=== PATIENT | female | born 1965 | race Caucasian/White ===

== ENCOUNTER 2024-07-14 14:26 | Inpatient (IN) | payer OTHER, SELFPAY ==
--- NOTE | ~2024-07-14 | CT_ITS ---
CLINICAL HISTORY: abd pain CT abdomen and pelvis with contrast Comparison: None Findings: No consolidation at the lung bases. Unremarkable gallbladder and bladder. Subcentimeter low attenuating left renal lesions which are too small to characterize Uterine fibroid measuring 2.0 cm. The other solid organs are unremarkable. No bowel dilation. A normal appendix is identified. Colonic diverticulosis. Distal descending/proximal sigmoid colon inflamed diverticula with moderate pericolonic stranding and wall thickening. No fluid collection or free air No aneurysm. Mild calcified atherosclerotic disease. No lymphadenopathy. Trace ascites. No acute osseous abnormality. Impression: Acute uncomplicated diverticulitis. This document has been electronically signed by: Carolyn Lund MD on 07/14/2024 16:44:38
[2024-07-14 14:33] VITALS: BP 148/88; PULSE 85; O2SAT 98
[2024-07-14 14:38] VITALS: BP 130/68; PULSE 83; RESP 16; TEMP 37.1; O2SAT 93; BMI 30.3
--- NOTE | 2024-07-14 15:10 | ED_ITS ---
HPI - General Adult General Chief complaint: Abdominal Pain Stated complaint: SEVERE ABD PAIN,HX DIVERTICULITIS PER EMS Time Seen by Provider: 07/14/24 15:09 Source: patient and EMS Mode of arrival: EMS Limitations: no limitations History of Present Illness ED Provider: Hui Luong PA-C HPI narrative: Patient is a 58 year old assigned female at with a history of CPTSD, COPD, HTN, HLD, Bipolar disorder, asthma, and diverticulitis presenting to the emergency department today with abdominal pain. Patient states that she was recently admitted at [facility] for diverticulitis but did not like how she was being treated there and left against medical advice. Patient denies any dizziness, lightheadedness, nausea, vomiting, fever, chills, blurry vision, double vision, loss of vision, chest pain, difficulty breathing, shortness of breath, back pain, night sweats, pain with urination, increased urinary frequency, increased urinary urgency, blood in her urine or stool, syncope or a near syncopal episode, recent trauma or falls, bowel incontinence, bladder incontinence, or any other complaints at this time. Onset (ago): day(s) Relieving factors: none Exacerbating factors: none Associated symptoms: denies other symptoms Treatments prior to arrival: other ([facility] admission) Related Data Home Medications ?Medication ?Instructions ?Recorded ?Confirmed lorazepam 1 mg tablet 1 mg PO BEDTIME PRN Insomnia 06/05/21 omeprazole 20 mg tablet,delayed 20 mg PO DAILY 06/05/21 release acetaminophen 500 mg tablet 500 mg PO Q8H PRN Pain 07/14/24 albuterol sulfate 90 mcg/actuation 1 puff inhalation Q6H PRN wheezing 07/14/24 aerosol inhaler (Ventolin HFA) amlodipine 5 mg tablet 5 mg PO DAILY 07/14/24 cholecalciferol (vitamin D3) 50 50 mcg PO DAILY 07/14/24 mcg (2,000 unit) tablet (Vitamin D3) gabapentin 600 mg tablet 600 mg PO TID 07/14/24 quetiapine 100 mg tablet 100 mg PO BEDTIME 07/14/24 tizanidine 2 mg tablet 2 mg PO TID PRN Muscle Spasms 07/14/24 Allergies Allergy/AdvReac Type Severity Reaction Status Date / Time morphine Allergy Unknown Verified 07/14/24 14:42 Review of Systems 2 Constitutional: Constitutional: Reports no additional constitutional complaints, Denies chills, Denies fever(s) and Denies night sweats Eyes: Eyes: Reports no additional eye complaints, Denies blurry vision, Denies change in vision, Denies diplopia, Denies eye discharge, Denies loss of vision and Denies eye pain ENT: Denies dizziness Cardiovascular: Cardiovascular: Reports no additional cardiovascular complaints, Denies chest pain, Denies lightheadedness, Denies Loss of Consciousness and Denies dyspnea Respiratory: Respiratory: Reports no additional respiratory complaints and Denies dyspnea Gastrointestinal: Gastrointestinal: Reports no additional gastrointestinal complaints, Reports abdominal pain, Denies melena, Denies hematochezia, Denies change in bowel habits and Denies change in stool character Genitourinary: Genitourinary: Denies hematuria, Denies urinary frequency, Denies dysuria, Denies urinary incontinence, Denies urinary hesitancy and Denies urinary urgency Musculoskeletal: Musculoskeletal: Reports no additional musculoskeletal complaints, Denies numbness and Denies tingling Neurologic: Denies dizziness, Denies loss of vision, Denies numbness and Denies tingling Psychiatric: Psychiatric: Reports no additional psychiatric complaints Endocrine: Endocrine: Reports no additional endocrine complaints Hematologic/Lymphatic: Hematologic/Lymphatic: Reports no additional hematologic/lymphatic complaints Allergic/Immunologic: Allergic/Immunologic: Reports no additional allergic/immunologic complaints FOR[facility]LY [facility] Past Medical History Attestation statement: The following information was validated with the patient. Source: old records reviewed and nursing notes reviewed Medical History (Updated 07/14/24 @ 17:20 by KALEB Grijalva) Acute diverticulitis History of diverticulitis Bipolar depression PTSD (post-traumatic stress disorder) GERD (gastroesophageal reflux disease) Elevated cholesterol Urinary incontinence HTN (hypertension) COPD (chronic obstructive pulmonary disease) Asthma Surgical History Hx of eye surgery Hx of section Hx of colonoscopy Social History Social History Advance Directives: No Advance Directives Information Provided: No Do you have a plan to hurt others: No Plan Physical Exam ED Vital Signs: Vital Signs - 24 hr 07/14/24 14:38 Temperature 98.7 F Pulse Rate 83 Respiratory Rate 16 Blood Pressure 130/68 Pulse Oximetry 93 Oxygen Delivery Method Room Air BMI result Body Mass Index 30.3 Const General: cooperative, no acute distress, alert and awake Nutritional Appearance: well nourished Orientation/consciousness: patient oriented x3 Limitations: no limitations HENMT Head: Yes normal to inspection and Yes atraumatic Ears: hearing grossly normal bilaterally and external ears normal General nose exam: Normal external nose present, no nasal discharge noted and no epistaxis Face and sinus: Yes normal facial exam, No abrasion and No laceration Mouth: Normal oral and palatal mucosa present, no drooling and no muffled voice Eyes General: appearance normal, both eyes and all related structures Periorbital: periorbital findings normal Eyelids: Yes eyelids normal Conjunctivae: conjunctivae normal Pupils: Equal, round and reactive pupils present EOM: EOMs intact bilaterally Neck Neck: Yes normal visual inspection, Yes full ROM and Yes no lymphadenopathy Chest Chest palpation & inspection: normal inspection of the chest Resp Effort & Inspection: normal respiratory effort and able to speak in complete sentences GI Inspection: Yes normal to inspection Palpation (GI): not firm, Tenderness to palpation present (GI), no guarding and not rigid Neuro General: patient oriented x3 and moves all extremities Cranial nerves: Yes Equal, round and reactive pupils present Cognition (Neuro): normal cognition Extrem General: Yes normal to inspection, Yes full ROM and Yes capillary refill normal Psych Appearance: grossly normal Mental Status: mental status grossly normal Affect: normal affect Attitude: cooperative Thought process: Normal thought process present Thought content: Normal thought content present Insight: Good insight present (Psych) Medications Administered Discontinued Medications Generic Name Dose Route Start Last Admin Trade Name Freq PRN Reason Stop Dose Admin Ceftriaxone Sodium 1 gm 07/14/24 15:17 07/14/24 16:14 Ceftriaxone Sodium 1 Gm Vial IVPUSH 07/14/24 15:18 1 gm ONCE ONE Administration Metronidazole 500 mg in 100 mls @ 100 mls/hr 07/14/24 15:17 07/14/24 16:14 Flagyl IV 07/14/24 16:16 100 mls/hr ONCE ONE Administration Iohexol 85 ml 07/14/24 16:12 07/14/24 16:12 Iohexol 350 Mg/Ml 100 Ml Infus..Btl IV 07/14/24 16:13 85 ml ONCE ONE Administration Medical Decision Making Medical Decision Making MDM Narrative: Patient is a 58 year old assigned female at with a history of CPTSD, COPD, HTN, HLD, Bipolar disorder, asthma, and diverticulitis. Patient's physical exam was as noted in the physical exam portion of this note. Patient's blood work showed an elevated WBC count of 18.2. Patient's CT abd/pelvis showed acute diverticulitis. I spoke to the general surgeon property assessment monitor, Dr. Thorpe, who recommended medical admission and he would consult. I spoke to the hospitalist team who agreed to admission. Patient's clinical presentation is not consistent with sepsis (@1645). I explained my physical exam findings as well as all test results to the patient. I answered all questions asked by the patient. Patient verbalized agreement and understanding with this treatment plan and admission. Differential Diagnosis Differential Diagnoses: The differential diagnosis associated with the presentation includes Abdominal pain Diverticulitis Admission/Observation Consideration of admission/observation: Escalation of care including admission/observation considered Patient admitted as noted in the MDM Rationale portion of this note. Consult Healthcare Provider Management of the patient was discussed with: Hospitalist (agreed to admission as noted in the MDM Rationale portion of this note.) and Commodities Manager (spoke to the general surgeon, Dr. Thorpe, as noted in the MDM Rationale portion of this note.) Lab Data [facility] Lab Attestation statement: I reviewed the patient's lab results. My interpretation of these results are in the MDM Rationale portion of this note. 07/14/24 15:10 07/14/24 15:10 Labs: Lab Results 07/14/24 07/14/24 Range/Units 15:10 15:37 WBC 18.2 H (4.8-10.8) X10*3/uL RBC 4.38 (4.20-5.50) X10*6/uL Hgb 13.5 (12.0-16.0) g/dl Hct 40.3 (37.0-47.0) % MCV 92.0 (80.0-98.0) fL MCH 30.8 (27.0-33.0) pg MCHC 33.5 (31.0-35.0) g/dl RDW 13.0 (11.0-16.0) % Plt Count 413 H (160-400) X10*3/uL MPV 8.9 L (9.4-12.3) fL Immature Gran % (Auto) 0.6 H (0.0-0.4) % Neut % (Auto) 77.0 H (45-73) % Lymph % (Auto) 12.8 L (20-40) % Gooding % (Auto) 8.0 (2-11) % Eos % (Auto) 1.3 (0-4) % Baso % (Auto) 0.3 (0-2) % Lymph # (Auto) 2.3 (1.2-4.9) X10*3/uL Gooding # (Auto) 1.5 H (0.1-1.2) X10*3/uL Eos # (Auto) 0.2 (0.0-0.4) X10*3/uL Baso # (Auto) 0.1 (0.0-0.2) X10*3/uL Abs Immat Gran (auto) 0.10 H (0.00-0.03) X10*3/uL Absolute Neuts (auto) 14.0 H (2.0-8.3) x10*3/uL Absolute Nucleated RBC 0.000 (0.0-0.012) X10*3/uL Nucleated RBC % (auto) 0.0 (0.0-0.2) /100WBC Sodium 142 (135-145) mmol/L Potassium 3.7 (3.3-5.1) mmol/L Chloride 110 H (96-108) mmol/L Carbon Dioxide 24 (22-29) mmol/L Anion Gap 12 (12-20) BUN 12 (9-16) mg/dL Creatinine 0.65 (0.5-1.4) mg/dL Estim Creat Clear Calc 94.2 Estimated GFR > 60 Random Glucose 116 H (60-115) mg/dL Lactic Acid 1.1 (0.5-2.0) mmol/L Calcium 8.9 (8.4-10.2) mg/dL Total Bilirubin 0.3 (0.0-1.0) mg/dL AST 19 (5-31) U/L ALT 18 (0-31) U/L Alkaline Phosphatase 60 (39-117) U/L Total Protein 6.9 (6.5-8.0) g/dL Albumin 3.7 (3.5-5.0) g/dL Independent Interpretation I performed an independent interpretation of an: CT Scan Interpretation: My interpretation is in agreement with the radiologist's impression of this imaging study. L Report Number: [id number]: Total DLP = 605.00 mGy-cm CLINICAL HISTORY: abd pain CT abdomen and pelvis with contrast Comparison: None Findings: No consolidation at the lung bases. Unremarkable gallbladder and bladder. Subcentimeter low attenuating left renal lesions which are too small to characterize Uterine fibroid measuring 2.0 cm. The other solid organs are unremarkable. No bowel dilation. A normal appendix is identified. Colonic diverticulosis. Distal descending/proximal sigmoid colon inflamed diverticula with moderate pericolonic stranding and wall thickening. No fluid collection or free air No aneurysm. Mild calcified atherosclerotic disease. No lymphadenopathy. Trace ascites. No acute osseous abnormality. Impression: Acute uncomplicated diverticulitis. This document has been electronically signed by: Carolyn Lund MD on 07/14/2024 16:44:38 Dictated By: Carolyn Horvath MD Signed By: Electronically signed by Carolyn Horvath MD 07/14/24 [id number] Radiology Impression Discussion of test interpretation with radiology: I have reviewed the radiologist's reading. Independent Historian Clinical information obtained from an independent historian. History obtained from or confirmed by: EMS (EMS provided additional history and confirmed the history provided by the patient.) Critical Care Time Critical Care Time Critical Care Time: Yes Total Critical Care Time: 32 Attestation: I spent 32 minutes of Critical Care Time with this patient. This does not include time spent on separately reported billable procedures. Discharge Plan Discharge Clinical Impression: Acute diverticulitis Patient Disposition: Admitted As Inpatient Prescriptions: No Action lorazepam 1 mg Tablet 1 mg PO BEDTIME PRN (Reason: Insomnia) omeprazole 20 mg Tablet,Delayed Release (Dr/Ec) 20 mg PO DAILY gabapentin 600 mg tablet 600 mg PO TID tizanidine 2 mg tablet 2 mg PO TID PRN (Reason: Muscle Spasms) amlodipine 5 mg tablet 5 mg PO DAILY quetiapine 100 mg tablet 100 mg PO BEDTIME acetaminophen 500 mg tablet 500 mg PO Q8H PRN (Reason: Pain) albuterol sulfate [Ventolin HFA] 90 mcg/actuation HFA aerosol inhaler 1 puff inhalation Q6H PRN (Reason: wheezing) cholecalciferol (vitamin D3) [Vitamin D3] 50 mcg (2,000 unit) tablet 50 mcg PO DAILY Print Language: Mongolian
[2024-07-14 15:14] LABS: MANUAL DIFF FLAG NO
[2024-07-14 15:15] LABS: Basophils Absolute Auto 0.1 X10*3/uL (0.0-0.2); Basophils Percent Auto 0.3 % (0-2); Eosinophils Absolute Auto 0.2 X10*3/uL (0.0-0.4); Eosinophils Percent Auto 1.3 % (0-4); Hematocrit 40.3 % (37.0-47.0); Hemoglobin 13.5 g/dl (12.0-16.0); Imm Gran Pct Auto 0.6 % (0.0-0.4); Lymphocytes Absolute Auto 2.3 X10*3/uL (1.2-4.9); Lymphocytes Percent Auto 12.8 % (20-40); Mean Corpuscular HGB Conc 33.5 g/dl (31.0-35.0); Mean Corpuscular Hemoglobin 30.8 pg (27.0-33.0); Mean Platelet Volume 8.9 fL (9.4-12.3); Monocytes Absolute Auto 1.5 X10*3/uL (0.1-1.2); Platelet Count 413 X10*3/uL (160-400); Red Blood Count 4.38 X10*6/uL (4.20-5.50); White Blood Count 18.2 X10*3/uL (4.8-10.8)
[2024-07-14 15:40] LABS: Alanine Aminotransferase 18 U/L (0-31); Albumin Level 3.7 g/dL (3.5-5.0); Anion Gap 12 (12-20); Aspartate Amino Transferase 19 U/L (5-31); Bilirubin Total 0.3 mg/dL (0.0-1.0); Blood Urea Nitrogen 12 mg/dL (9-16); Calcium 8.9 mg/dL (8.4-10.2); Carbon Dioxide 24 mmol/L (22-29); Chloride 110 mmol/L (96-108); Creatinine Clr Calc Pharmacy 94.2; Estimated Glomerular Filt Rate > 60; Glucose Random 116 mg/dL (60-115); Potassium 3.7 mmol/L (3.3-5.1); Sodium 142 mmol/L (135-145); Total Protein 6.9 g/dL (6.5-8.0)
[2024-07-14 15:55] LABS: Alkaline Phosphatase 60 U/L (39-117)
[2024-07-14 16:01] LABS: Lactic Acid 1.1 mmol/L (0.5-2.0)
[2024-07-14] MEDS: iohexoL 350 MG/ML 100 ML INFUS..BTL 85 ML IV (16:12)
[2024-07-14] MEDS: metroNIDAZOLE/NS 500 MG/100 ML PIGGYBACK 100 MG IV (16:14)
[2024-07-14] MEDS: cefTRIAXone sodium 1 GM VIAL IVPUSH (16:14)
--- NOTE | 2024-07-14 17:06 | P.CONGS_ITS ---
History of Present Illness Consult details Consult date: 07/14/24 Narrative: 58 year old female with multiple medical problems including COPD, PTSD, bipolar disorder and hypertension, who is here in the ER because of abdominal pain. She says she was in [facility] ER last 07/06/2024 for abdominal pain and was told she had acute diverticulitis. She says that she left against medical advice as she says she was frustrated with her care there. She says she stayed in the ER for a long period of time. Furthermore, she apparently had some agreements with the staff She said her pain never really went away. Because of the persistence, she eventually decided to come to the ER today She denies any vomiting . She does says she has had loose stools with multiple episodes today She says that she did have some fever prior to going to the ER in [facility] last week. She also says she has had multiple colonoscopies in the past. She says she is being followed by Dr. Barfield here. She says she probably has about 10 colonoscopies and upper GI endoscopies before for multiple GI issues. She says she has a history of polyps. She says that she did have some inflammation in other parts of her intestine in the past but this is the 1st time that she actually remembers having diverticulitis Review of Systems 2 Constitutional: Constitutional: Denies chills and Denies fever(s) Cardiovascular: Cardiovascular: Denies chest pain, Denies dyspnea and Denies dyspnea on exertion Respiratory: Respiratory: Denies cough, Denies dyspnea and Denies dyspnea on exertion Gastrointestinal: Gastrointestinal: Denies hematochezia, Denies change in bowel habits and Reports diarrhea Genitourinary: Genitourinary: Denies hematuria Musculoskeletal: Musculoskeletal: Denies back pain and Denies limited range of motion Neurologic: Denies focal weakness and Denies convulsions Psychiatric: Psychiatric: Denies depression and Denies mood swings PMFSH Past Medical History Medical History Acute diverticulitis History of diverticulitis Bipolar depression PTSD (post-traumatic stress disorder) GERD (gastroesophageal reflux disease) Elevated cholesterol Urinary incontinence HTN (hypertension) COPD (chronic obstructive pulmonary disease) Asthma Surgical History Surgical History Hx of eye surgery Hx of section Hx of colonoscopy Social History Social History Household Members: None Housing: Apartment Do you presently have visiting nurse or other home services: Yes Patient Tobacco Use Status: Never used Tobacco e-Cigarette/Vaping Use: Former Use Substance Use Type: Crack/Cocaine service: No Meds Allergies Allergy/AdvReac Type Severity Reaction Status Date / Time morphine Allergy Unknown Verified 07/14/24 14:42 Home Medications ?Medication ?Instructions ?Recorded ?Confirmed ?Last Taken ?Type lorazepam 1 mg tablet 1 mg PO BID PRN Insomnia 06/05/21 07/14/24 Unknown History omeprazole 20 mg tablet,delayed 20 mg PO DAILY@0630 06/05/21 07/14/24 Unknown History release albuterol sulfate 90 mcg/actuation 1 puff inhalation Q6H PRN wheezing 07/14/24 07/14/24 Unknown History aerosol inhaler (Ventolin HFA) amlodipine 5 mg tablet 5 mg PO DAILY 07/14/24 07/14/24 Unknown History cholecalciferol (vitamin D3) 50 50 mcg PO DAILY 07/14/24 07/14/24 Unknown History mcg (2,000 unit) tablet (Vitamin D3) gabapentin 600 mg tablet 600 mg PO TID 07/14/24 07/14/24 Unknown History tizanidine 2 mg tablet 2 mg PO TID PRN Muscle Spasms 07/14/24 07/14/24 Unknown History Physical Exam 2 Vital Signs: Vital Signs: Last Vital Signs Temp 98.7 F 07/14/24 14:38 Pulse 83 07/14/24 14:38 Resp 16 07/14/24 14:38 BP 130/68 07/14/24 14:38 Pulse Ox 93 07/14/24 14:38 O2 Del Method Room Air 07/14/24 14:38 BMI result Body Mass Index 30.3 Const: Other: Appears comfortable General: comfortable and no acute distress Orientation/consciousness: p atient oriented x3 Neck: Neck: Yes no lymphadenopathy Resp: Auscultation: clear to auscultation bilaterally Cardio: Rhythm: regular rhythm GI: Palpation (GI): Soft to palpation, Tenderness to palpation present (GI) (Some tenderness on the lower abdomen and the left side), no guarding and not rigid Neuro: General: patient oriented x3 Results Labs 07/17/24 05:45 07/15/24 05:06 Labs: Abnormal lab results 07/14/24 Range/Units 15:10 WBC 18.2 H (4.8-10.8) X10*3/uL Plt Count 413 H (160-400) X10*3/uL MPV 8.9 L (9.4-12.3) fL Immature Gran % (Auto) 0.6 H (0.0-0.4) % Neut % (Auto) 77.0 H (45-73) % Lymph % (Auto) 12.8 L (20-40) % Hood # (Auto) 1.5 H (0.1-1.2) X10*3/uL Abs Immat Gran (auto) 0.10 H (0.00-0.03) X10*3/uL Absolute Neuts (auto) 14.0 H (2.0-8.3) x10*3/uL Chloride 110 H (96-108) mmol/L Random Glucose 116 H (60-115) mg/dL Short CBC 07/14/24 Range/Units 15:10 WBC 18.2 H (4.8-10.8) X10*3/uL Hgb 13.5 (12.0-16.0) g/dl Hct 40.3 (37.0-47.0) % Plt Count 413 H (160-400) X10*3/uL BMP 07/14/24 15:10 Sodium 142 Potassium 3.7 Chloride 110 H Carbon Dioxide 24 BUN 12 Creatinine 0.65 Calcium 8.9 Liver Function 07/14/24 Range/Units 15:10 Total Bilirubin 0.3 (0.0-1.0) mg/dL AST 19 (5-31) U/L ALT 18 (0-31) U/L Alkaline Phosphatase 60 (39-117) U/L Albumin 3.7 (3.5-5.0) g/dL All other labs normal. Laboratory Results WBC 18.2 X10*3/uL (4.8-10.8) H 07/14/24 15:10 RBC 4.38 X10*6/uL (4.20-5.50) 07/14/24 15:10 Hgb 13.5 g/dl (12.0-16.0) 07/14/24 15:10 Hct 40.3 % (37.0-47.0) 07/14/24 15:10 MCV 92.0 fL (80.0-98.0) 07/14/24 15:10 MCH 30.8 pg (27.0-33.0) 07/14/24 15:10 MCHC 33.5 g/dl (31.0-35.0) 07/14/24 15:10 RDW 13.0 % (11.0-16.0) 07/14/24 15:10 Plt Count 413 X10*3/uL (160-400) H 07/14/24 15:10 MPV 8.9 fL (9.4-12.3) L 07/14/24 15:10 Immature Gran % (Auto) 0.6 % (0.0-0.4) H 07/14/24 15:10 Neut % (Auto) 77.0 % (45-73) H 07/14/24 15:10 Lymph % (Auto) 12.8 % (20-40) L 07/14/24 15:10 Hood % (Auto) 8.0 % (2-11) 07/14/24 15:10 Eos % (Auto) 1.3 % (0-4) 07/14/24 15:10 Baso % (Auto) 0.3 % (0-2) 07/14/24 15:10 Lymph # (Auto) 2.3 X10*3/uL (1.2-4.9) 07/14/24 15:10 Hood # (Auto) 1.5 X10*3/uL (0.1-1.2) H 07/14/24 15:10 Eos # (Auto) 0.2 X10*3/uL (0.0-0.4) 07/14/24 15:10 Baso # (Auto) 0.1 X10*3/uL (0.0-0.2) 07/14/24 15:10 Abs Immat Gran (auto) 0.10 X10*3/uL (0.00-0.03) H 07/14/24 15:10 Absolute Neuts (auto) 14.0 x10*3/uL (2.0-8.3) H 07/14/24 15:10 Absolute Nucleated RBC 0.000 X10*3/uL (0.0-0.012) 07/14/24 15:10 Nucleated RBC % (auto) 0.0 /100WBC (0.0-0.2) 07/14/24 15:10 Sodium 142 mmol/L (135-145) 07/14/24 15:10 Potassium 3.7 mmol/L (3.3-5.1) 07/14/24 15:10 Chloride 110 mmol/L (96-108) H 07/14/24 15:10 Carbon Dioxide 24 mmol/L (22-29) 07/14/24 15:10 Anion Gap 12 (12-20) 07/14/24 15:10 BUN 12 mg/dL (9-16) 07/14/24 15:10 Creatinine 0.65 mg/dL (0.5-1.4) 07/14/24 15:10 Estim Creat Clear Calc 94.2 07/14/24 15:10 Estimated GFR > 60 07/14/24 15:10 Random Glucose 116 mg/dL (60-115) H 07/14/24 15:10 Lactic Acid 1.1 mmol/L (0.5-2.0) 07/14/24 15:37 Calcium 8.9 mg/dL (8.4-10.2) 07/14/24 15:10 Total Bilirubin 0.3 mg/dL (0.0-1.0) 07/14/24 15:10 AST 19 U/L (5-31) 07/14/24 15:10 ALT 18 U/L (0-31) 07/14/24 15:10 Alkaline Phosphatase 60 U/L (39-117) 07/14/24 15:10 Total Protein 6.9 g/dL (6.5-8.0) 07/14/24 15:10 Albumin 3.7 g/dL (3.5-5.0) 07/14/24 15:[address] scan report/results: report reviewed and image reviewed CT scan - pelvis: report reviewed and image reviewed Assessment and Plan (1) Acute diverticulitis: Status: Acute She is here for abdominal pain. I have reviewed her CAT scan and this does show moderate inflammatory changes in the distal descending and proximal sigmoid colon. This is consistent with acute diverticulitis She appears to gone to the ER last week in [facility] for the same problem but she had signed out against medical advice. This is likely to be incompletely treated diverticulitis She has multiple medical issues so I would recommend admission to the hospitalist service for IV antibiotics. She should be on bowel rest. Abdominal exam is very benign at this time. She does not appear to be septic at all. She does have leukocytosis I explained to her the plan as above. I did tell her that if with non improvement or worsening, she may require surgical intervention including with the need for a stoma. I will follow along while she is in the hospital. Procedures Date of Service Date of Service: 07/21/24
[2024-07-14 17:22] VITALS: BP 112/77; PULSE 84; RESP 16; TEMP 37.2; O2SAT 94
--- NOTE | 2024-07-14 17:41 | PHA.MEDREC ---
Addendum entered by Fredi Constantino [facility] 07/14/24 17:57: med rec reviewed Original Note: Pharmacy Consult ? Medication Reconciliation Pharmacy has completed the medication reconciliation. Spoke with patient and was able to confirm her medications, patient was a bit sleepy and in pain but still wanted to confirm med rec. Patient confirmed she is not taking the Acetaminophen 500mg tab anymore and stated it never helped with pain relief. She confirmed she is taking her Lorazepam 1mg tablet twice a day as needed for anxiety. She confirmed she stopped the Quetiapine 100mg tab herself about a week ago when she started feeling sick and is not sure if she is gonna start it again or not. She stated she is still taking the Amoxicillin 500mg regimen and when I asked how many days she has left or when she started it she stated she started it July 04 after her dental appointment and she did not know how many days she has left; she also confirmed it is three times a day when I asked her the directions, the patient should of been done 07/11 according to her start date. The patient was not able to tell me the last time she took her medications due to her being in a lot of discomfort and she did not want to answer any other questions at this time.
--- NOTE | 2024-07-14 18:01 | P.HPHOSP_ITS ---
History of Present Illness Date of Service: 07/14/24 Chief Complaint: Abdominal pain 58-year-old female with history of COPD PTSD bipolar disorder and hypertension and a history of diverticulitis presents with abdominal pain consistent with a diverticular flare. Patient states she was recently in [facility] at the beginning of the year but was unhappy with the care. She left AMA; presents today with worsening pain that she says has not rebounded to outpatient therapies. CT demonstrated acute uncomplicated diverticulitis Review of Systems 2 Review of Systems: Denies chest pain Denies shortness of breath Admits to nausea denies vomiting diarrhea Denies fever chills [facility] Medical History (Updated 07/14/24 @ 18:05 by Roger Church DO) Acute diverticulitis History of diverticulitis Bipolar depression PTSD (post-traumatic stress disorder) GERD (gastroesophageal reflux disease) Elevated cholesterol Urinary incontinence HTN (hypertension) COPD (chronic obstructive pulmonary disease) Asthma Surgical History Hx of eye surgery Hx of section Hx of colonoscopy Social History Advance Directives: No Advance Directives Information Provided: No Do you have a plan to hurt others: No Plan Meds Allergies Allergy/AdvReac Type Severity Reaction Status Date / Time morphine Allergy Unknown Verified 07/14/24 14:42 Active Medications: Current Medications Acetaminophen (Acetaminophen 325 Mg Tablet) 650 mg PO Q6H PRN PRN Reason: Pain, Mild 1-3,fever,headache Calcium Carbonate (Calcium Carbonate 750 Mg Tab.Chew) 750 mg PO Q4H PRN PRN Reason: Heartburn Enoxaparin Sodium (Enoxaparin Sodium 40 Mg/0.4 Ml Syringe) 40 mg SUBCUT Q24H [facility] Hydromorphone HCl (Hydromorphone Hcl 0.5 Mg/0.5 Ml Syringe) 0.5 mg IVPUSH Q4H PRN; Protocol PRN Reason: Pain, Severe (Pain Scale 7-10) Lactated Ringer's (Lr) 1,000 mls @ 100 mls/hr IVCONT .Q10H [facility] Piperacillin Sod/Tazobactam (Sod 3.375 gm/ Sodium Chloride) 50 mls @ 100 mls/hr IV Q6H [facility] Magnesium Hydroxide (Milk Of Magnesia 30 Ml Oral.Susp) 30 ml PO DAILY PRN PRN Reason: Constipation Melatonin (Melatonin 3 Mg Tablet) 6 mg PO BEDTIME PRN PRN Reason: Insomnia Ondansetron HCl (Ondansetron Hcl 4 Mg/2 Ml Vial) 4 mg IVPUSH Q8H PRN PRN Reason: Nausea and Vomiting Sodium Chloride (0.9 % Sodium Chloride Flush 3 Ml Syringe) 3 ml IVFLUSH QSHIFT [facility] Home Medications ?Medication ?Instructions ?Recorded ?Confirmed ?Last Taken ?Type lorazepam 1 mg tablet 1 mg PO BID PRN Insomnia 06/05/21 07/14/24 Unknown History omeprazole 20 mg tablet,delayed 20 mg PO DAILY@0630 06/05/21 07/14/24 Unknown History release albuterol sulfate 90 mcg/actuation 1 puff inhalation Q6H PRN wheezing 07/14/24 07/14/24 Unknown History aerosol inhaler (Ventolin HFA) amlodipine 5 mg tablet 5 mg PO DAILY 07/14/24 07/14/24 Unknown History amoxicillin 500 mg tablet 500 mg PO TID 07/14/24 07/14/24 Unknown History cholecalciferol (vitamin D3) 50 50 mcg PO DAILY 07/14/24 07/14/24 Unknown History mcg (2,000 unit) tablet (Vitamin D3) gabapentin 600 mg tablet 600 mg PO TID 07/14/24 07/14/24 Unknown History tizanidine 2 mg tablet 2 mg PO TID PRN Muscle Spasms 07/14/24 07/14/24 Unknown History Physical Exam 2 Vital Signs and Narrative: Vital Signs: Last Vital Signs Temp 98.9 F 07/14/24 17:22 Pulse 84 07/14/24 17:22 Resp 16 07/14/24 17:22 BP 112/77 07/14/24 17:22 Pulse Ox 94 07/14/24 17:22 O2 Del Method Room Air 07/14/24 17:22 BMI result Body Mass Index 30.3 Const: Other: Awake alert no acute distress Resp: Other: Clear to auscultation bilaterally no rales rhonchi or wheezes Cardio: Other: No S4; positive S1-S2; no S3 murmurs rubs or gallops GI: Other: Soft mild left lower quadrant pain without rebound. Bowel sounds quiet Neuro: Other: Cranial nerves 2-12 grossly intact as tested. Motor is 5/5 all extremities. Sensation is intact. Cognition appropriate. Gait not examined Extrem: Other: No edema bilaterally Results Labs 07/14/24 15:10 07/14/24 15:10 Labs: Laboratory Results - last 24 hr 07/14/24 07/14/24 15:10 15:37 MCV 92.0 MCH 30.8 MCHC 33.5 RDW 13.0 Plt Count 413 H MPV 8.9 L Immature Gran % (Auto) 0.6 H Neut % (Auto) 77.0 H Lymph % (Auto) 12.8 L [place] % (Auto) 8.0 Eos % (Auto) 1.3 Baso % (Auto) 0.3 Lymph # (Auto) 2.3 [place] # (Auto) 1.5 H Eos # (Auto) 0.2 Baso # (Auto) 0.1 Abs Immat Gran (auto) 0.10 H Absolute Neuts (auto) 14.0 H Absolute Nucleated RBC 0.000 Nucleated RBC % (auto) 0.0 Anion Gap 12 Estim Creat Clear Calc 94.2 Estimated GFR > 60 Random Glucose 116 H Lactic Acid 1.1 Calcium 8.9 Total Bilirubin 0.3 AST 19 ALT 18 Alkaline Phosphatase 60 Total Protein 6.9 Albumin 3.7 Assessment and Plan (1) Acute diverticulitis: Status: Acute (2) COPD (chronic obstructive pulmonary disease): Qualifiers: COPD type: unspecified COPD Qualified Code(s): J44.9 - Chronic obstructive pulmonary disease, unspecified Status: Acute (3) HTN (hypertension): Qualifiers: Hypertension type: primary hypertension Qualified Code(s): I10 - Essential (primary) hypertension Status: Acute Plan 58-year-old female with history of known diverticular disease presents with acute left lower quadrant pain consistent with past diverticular flares. CT scan consistent with mild uncomplicated sigmoid diverticulitis 1. Sigmoid diverticulitis -Zosyn -Dilaudid for pain -clear liquid diet -appreciate surgical input 2. COPD -stable and well compensated -continue outpatient therapies 3. Hypertension -acceptable control on current therapies -adjust as indicated Full code Lovenox Patient requires at least 2 midnights going forward of inpatient stay to treat acute diverticulitis with IV antibiotics. This can not be achieved a lesser acute setting Quality Stroke Does the patient have a stroke diagnosis?: No VTE Prior VTE?: No VTE Risk Level:: Medical - moderate - high VTE Device Contraindication: Treatment Not Indicated VTE Drug Contraindication: N/A - Med Ordered
[2024-07-14] MEDS: HYDROmorphone HCl 0.5 MG/0.5 ML SYRINGE IVPUSH ×2 (18:18→22:18)
[2024-07-14] MEDS: Piperacillin Sodium/Tazobactam 3.375 GM in 0.9 % Sodium Chloride 50 ML IV ×2 (18:19→23:35)
[2024-07-14] MEDS: ondansetron HCL 4 MG/2 ML VIAL IVPUSH (18:23)
[2024-07-14] MEDS: Lactated Ringers 1,000 ML 100 ML IVCONT (19:07)
[2024-07-14 19:17] VITALS: BP 127/55; PULSE 83; RESP 18; TEMP 37.4; O2SAT 93
[2024-07-14] MEDS: Acetaminophen 325 MG TABLET 650 MG PO (19:23)
--- NOTE | 2024-07-14 19:23 | PC.NURSE ---
Patient requesting acetaminophen for 4/10 headache at this time.
[2024-07-14] MEDS: Gabapentin 600 MG TABLET PO (22:09)
[2024-07-14] MEDS: Enoxaparin Sodium 40 MG/0.4 ML SYRINGE SUBCUT (22:10)
[2024-07-14 22:18] VITALS: RESP 18
[2024-07-14 22:50] VITALS: BP 129/62; PULSE 78; RESP 18; TEMP 36.6; O2SAT 92
[2024-07-14 22:57] VITALS: BMI 32.1
[2024-07-14] MEDS: 0.9 % Sodium Chloride Flush 3 ML SYRINGE IVFLUSH (23:35)
[2024-07-14] MEDS: diphenhydrAMINE HCL 50 MG/ML VIAL IVPUSH (23:45)
[2024-07-15] MEDS: HYDROmorphone HCl 0.5 MG/0.5 ML SYRINGE IVPUSH ×6 (02:18→23:58)
[2024-07-15] MEDS: ondansetron HCL 4 MG/2 ML VIAL IVPUSH ×3 (02:20→19:54)
[2024-07-15 02:51] LABS: Appearance Urine Clear; Color Urine Yellow; Glucose Urine UA Negative (Negative); Leukocyte Esterase Urine Negative (Negative); Nitrite Urine Negative (Negative); Urine Blood Negative (Negative); Urine Ketones Negative (Negative); Urine Protein Negative (Neg-Trace)
[2024-07-15 04:00] VITALS: BP 112/56; PULSE 79; RESP 16; TEMP 36.4; O2SAT 94
[2024-07-15] MEDS: Omeprazole 20 MG CAPSULE.DR PO (05:11)
[2024-07-15] MEDS: Piperacillin Sodium/Tazobactam 3.375 GM in 0.9 % Sodium Chloride 50 ML IV ×4 (05:12→23:46)
[2024-07-15] MEDS: Lactated Ringers 1,000 ML 100 ML IVCONT ×2 (05:20→15:47)
[2024-07-15 06:11] LABS: MANUAL DIFF FLAG NO
[2024-07-15 06:16] LABS: Basophils Absolute Auto 0.1 X10*3/uL (0.0-0.2); Basophils Percent Auto 0.5 % (0-2); Eosinophils Absolute Auto 0.4 X10*3/uL (0.0-0.4); Eosinophils Percent Auto 2.4 % (0-4); Hematocrit 38.8 % (37.0-47.0); Hemoglobin 12.5 g/dl (12.0-16.0); Imm Gran Abs Auto 0.08 X10*3/uL (0.00-0.03); Imm Gran Pct Auto 0.5 % (0.0-0.4); Lymphocytes Absolute Auto 3.1 X10*3/uL (1.2-4.9); Lymphocytes Percent Auto 20.5 % (20-40); Mean Corpuscular HGB Conc 32.2 g/dl (31.0-35.0); Mean Corpuscular Hemoglobin 30.3 pg (27.0-33.0); Mean Corpuscular Volume 93.9 fL (80.0-98.0); Mean Platelet Volume 9.3 fL (9.4-12.3); Monocytes Absolute Auto 1.3 X10*3/uL (0.1-1.2); Monocytes Percent Auto 8.7 % (2-11); Neutrophils Absolute Auto 10.2 x10*3/uL (2.0-8.3); Neutrophils Percent Auto 67.4 % (45-73); Platelet Count 433 X10*3/uL (160-400); Red Blood Count 4.13 X10*6/uL (4.20-5.50); Red Cell Distribution Width 13.3 % (11.0-16.0); White Blood Count 15.2 X10*3/uL (4.8-10.8)
[2024-07-15 06:37] LABS: Alanine Aminotransferase 11 U/L (0-31); Albumin Level 3.4 g/dL (3.5-5.0); Alkaline Phosphatase 59 U/L (39-117); Anion Gap 10 (12-20); Aspartate Amino Transferase 14 U/L (5-31); Bilirubin Total 0.3 mg/dL (0.0-1.0); Blood Urea Nitrogen 7 mg/dL (9-16); Calcium 7.8 mg/dL (8.4-10.2); Carbon Dioxide 25 mmol/L (22-29); Chloride 109 mmol/L (96-108); Creatinine Clr Calc Pharmacy 92.7; Estimated Glomerular Filt Rate > 60; Glucose Random 96 mg/dL (60-115); Potassium 3.7 mmol/L (3.3-5.1); Sodium 140 mmol/L (135-145); Total Protein 6.5 g/dL (6.5-8.0)
[2024-07-15 07:27] VITALS: BP 120/57; PULSE 77; RESP 18; TEMP 36.6; O2SAT 93
[2024-07-15] MEDS: amLODIPine Besylate 5 MG TABLET PO (07:45)
[2024-07-15] MEDS: Gabapentin 600 MG TABLET PO ×3 (07:45→20:38)
[2024-07-15] MEDS: 0.9 % Sodium Chloride Flush 3 ML SYRINGE IVFLUSH ×3 (07:46→20:38)
[2024-07-15 08:19] LABS: C Reactive Protein 13.38 mg/dL (< or = 0.50)
--- NOTE | 2024-07-15 09:22 | PM.PNGS ---
Subjective Subjective Date of Service: 07/15/24 Interval history: Complains of pain However says she was able to sleep Tolerating clear liquids No fever Physical Exam Vital Signs: Vital Signs: Last Vital Signs Temp 97.9 F 07/15/24 07:27 Pulse 77 07/15/24 07:27 Resp 18 07/15/24 07:27 BP 120/57 L 07/15/24 07:27 Pulse Ox 93 07/15/24 07:27 O2 Del Method Room Air 07/15/24 07:27 BMI result Body Mass Index 32.1 Const: Other: She actually looks well overall General: comfortable and no acute distress Resp: Effort & Inspection: normal respiratory effort GI: Palpation (GI): Soft to palpation, not firm, Tenderness to palpation present (GI) (Some tenderness on the left side) and no guarding Objective Data Active Medications Acetaminophen (Acetaminophen 325 Mg Tablet) 650 mg PO Q6H PRN PRN Reason: Pain, Mild 1-3,fever,headache Last Admin: 07/14/24 19:23 Dose: 650 mg Documented By: SAM Albuterol Sulfate (Albuterol Sulfate 90 Mcg 8 Gm Inhaler) 1 puff INHALE Q6H PRN PRN Reason: wheezing Amlodipine Besylate (Amlodipine Besylate 5 Mg Tablet) 5 mg PO DAILY [facility]; Protocol Last Admin: 07/15/24 07:45 Dose: 5 mg Documented By: ESTEVAN Calcium Carbonate (Calcium Carbonate 750 Mg Tab.Chew) 750 mg PO Q4H PRN PRN Reason: Heartburn Enoxaparin Sodium (Enoxaparin Sodium 40 Mg/0.4 Ml Syringe) 40 mg SUBCUT Q24H [facility] Last Admin: 07/14/24 22:10 Dose: 40 mg Documented By: LANNY Gabapentin (Gabapentin 600 Mg Tablet) 600 mg PO TID [facility] Last Admin: 07/15/24 07:45 Dose: 600 mg Documented By: ESTEVAN Hydromorphone HCl (Hydromorphone Hcl 0.5 Mg/0.5 Ml Syringe) 0.5 mg IVPUSH Q4H PRN; Protocol PRN Reason: Pain, Severe (Pain Scale 7-10) Last Admin: 07/15/24 07:45 Dose: 0.5 mg Documented By: ESTEVAN Lactated Ringer's (Lr) 1,000 mls @ 100 mls/hr IVCONT .Q10H [facility] Last Admin: 07/15/24 05:20 Dose: 100 mls/hr Documented By: DALLIN Piperacillin Sod/Tazobactam (Sod 3.375 gm/ Sodium Chloride) 50 mls @ 100 mls/hr IV Q6H [facility] Last Infusion: 07/15/24 05:58 Dose: Infused Documented By: DALLIN Magnesium Hydroxide (Milk Of Magnesia 30 Ml Oral.Susp) 30 ml PO DAILY PRN PRN Reason: Constipation Melatonin (Melatonin 3 Mg Tablet) 6 mg PO BEDTIME PRN PRN Reason: Insomnia Omeprazole (Omeprazole 20 Mg Capsule.Dr) 20 mg PO DAILY@0630 [facility] Last Admin: 07/15/24 05:11 Dose: 20 mg Documented By: DALLIN Ondansetron HCl (Ondansetron Hcl 4 Mg/2 Ml Vial) 4 mg IVPUSH Q8H PRN PRN Reason: Nausea and Vomiting Last Admin: 07/15/24 02:20 Dose: 4 mg Documented By: DALLIN Sodium Chloride (0.9 % Sodium Chloride Flush 3 Ml Syringe) 3 ml IVFLUSH QSHIFT [facility] Last Admin: 07/15/24 07:46 Dose: 3 ml Documented By: LEAME Labs 07/15/24 05:06 07/15/24 05:06 Labs: Laboratory Results - last 24 hr 07/14/24 07/14/24 07/15/24 15:10 15:37 02:32 MCV 92.0 MCH 30.8 MCHC 33.5 RDW 13.0 Plt Count 413 H MPV 8.9 L Immature Gran % (Auto) 0.6 H Neut % (Auto) 77.0 H Lymph % (Auto) 12.8 L [place] % (Auto) 8.0 Eos % (Auto) 1.3 Baso % (Auto) 0.3 Lymph # (Auto) 2.3 [place] # (Auto) 1.5 H Eos # (Auto) 0.2 Baso # (Auto) 0.1 Abs Immat Gran (auto) 0.10 H Absolute Neuts (auto) 14.0 H Absolute Nucleated RBC 0.000 Nucleated RBC % (auto) 0.0 Anion Gap 12 Estim Creat Clear Calc 94.2 Estimated GFR > 60 Random Glucose 116 H Lactic Acid 1.1 Calcium 8.9 Total Bilirubin 0.3 AST 19 ALT 18 Alkaline Phosphatase 60 C-Reactive Protein Total Protein 6.9 Albumin 3.7 Urine Color Yellow Urine Appearance Clear Urine pH 6.0 Ur Specific [place] 1.010 Urine Protein Negative Urine Glucose (UA) Negative Urine Ketones Negative Urine Blood Negative Urine Nitrite Negative Ur Leukocyte Esterase Negative 07/15/24 05:06 MCV 93.9 MCH 30.3 MCHC 32.2 RDW 13.3 Plt Count 433 H MPV 9.3 L Immature Gran % (Auto) 0.5 H Neut % (Auto) 67.4 Lymph % (Auto) 20.5 [place] % (Auto) 8.7 Eos % (Auto) 2.4 Baso % (Auto) 0.5 Lymph # (Auto) 3.1 [place] # (Auto) 1.3 H Eos # (Auto) 0.4 Baso # (Auto) 0.1 Abs Immat Gran (auto) 0.08 H Absolute Neuts (auto) 10.2 H Absolute Nucleated RBC 0.000 Nucleated RBC % (auto) 0.0 Anion Gap 10 L Estim Creat Clear Calc 92.7 Estimated GFR > 60 Random Glucose 96 Lactic Acid Calcium 7.8 L D Total Bilirubin 0.3 AST 14 ALT 11 Alkaline Phosphatase 59 C-Reactive Protein 13.38 H Total Protein 6.5 Albumin 3.4 L Urine Color Urine Appearance Urine pH Ur Specific [place] Urine Protein Urine Glucose (UA) Urine Ketones Urine Blood Urine Nitrite Ur Leukocyte Esterase Procedures Date of Service Date of Service: 07/15/24 Progress Note: A&P Assessment and plan (1) Acute diverticulitis: Status: Acute Assessment and Plan: Untreated diverticulitis from [facility] last week Should continue with IV antibiotics She looks well overall WBC down She says she is followed by Dr. Barfield Non septic looking and exam remains very benign Keep on clear liquids for now Time Spent With Patient Time: Total time managing care of this patient today ____ minutes. Quality Stroke Does the patient have a stroke diagnosis?: No VTE Prior VTE?: No VTE Risk Level:: Medical - moderate - high VTE Device Contraindication: Treatment Not Indicated VTE Drug Contraindication: N/A - Med Ordered
--- NOTE | 2024-07-15 11:18 | MHC.CM.PN ---
PT LIVES ALONE HAS 1 X WEEKLY HOMMAKLING SERVIES ,SHE WILL NEED TRABSPORT HOME WHEN DCD
[2024-07-15 11:30] VITALS: BP 108/51; PULSE 81; RESP 18; TEMP 36.7; O2SAT 94
[2024-07-15] MEDS: LORazepam 1 MG TABLET PO ×2 (13:01→23:17)
--- NOTE | 2024-07-15 13:03 | HO.PM.IMPN ---
Subjective Subjective Date of Service: 07/15/24 Interval History: c/o LLQ pain; no fever; some nausea Review of Systems Review of Systems: Yes all other systems are reviewed and are negative Physical Exam Vital Signs: Vital Signs: Last Vital Signs Temp 98.1 F 07/15/24 11:30 Pulse 81 07/15/24 11:30 Resp 18 07/15/24 11:30 BP 108/51 L 07/15/24 11:30 Pulse Ox 94 07/15/24 11:30 O2 Del Method Room Air 07/15/24 11:30 BMI result Body Mass Index 32.1 Gen: in no acute distress HEENT: sclera anicteric, moist mucus membranes Neck: supple Lungs: clear to auscultation bilaterally Heart: regular rate and rhythm, no murmurs Abd: soft, LLQ tender without rebound, non-distended Ext: no edema Skin: warm/well-perfused Neuro: alert and oriented x3, no focal findings Psych: appropriate affect Objective Data Active Medications Acetaminophen (Acetaminophen 325 Mg Tablet) 650 mg PO Q6H PRN PRN Reason: Pain, Mild 1-3,fever,headache Last Admin: 07/14/24 19:23 Dose: 650 mg Documented By: SAM Albuterol Sulfate (Albuterol Sulfate 90 Mcg 8 Gm Inhaler) 1 puff INHALE Q6H PRN PRN Reason: wheezing Amlodipine Besylate (Amlodipine Besylate 5 Mg Tablet) 5 mg PO DAILY [facility]; Protocol Last Admin: 07/15/24 07:45 Dose: 5 mg Documented By: ESTEVAN Calcium Carbonate (Calcium Carbonate 750 Mg Tab.Chew) 750 mg PO Q4H PRN PRN Reason: Heartburn Enoxaparin Sodium (Enoxaparin Sodium 40 Mg/0.4 Ml Syringe) 40 mg SUBCUT Q24H [facility] Last Admin: 07/14/24 22:10 Dose: 40 mg Documented By: LANNY Gabapentin (Gabapentin 600 Mg Tablet) 600 mg PO TID [facility] Last Admin: 07/15/24 07:45 Dose: 600 mg Documented By: ESTEVAN Hydromorphone HCl (Hydromorphone Hcl 0.5 Mg/0.5 Ml Syringe) 0.5 mg IVPUSH Q4H PRN; Protocol PRN Reason: Pain, Severe (Pain Scale 7-10) Last Admin: 07/15/24 11:49 Dose: 0.5 mg Documented By: ESTEVAN Lactated Ringer's (Lr) 1,000 mls @ 100 mls/hr IVCONT .Q10H [facility] Last Admin: 07/15/24 05:20 Dose: 100 mls/hr Documented By: DALLIN Piperacillin Sod/Tazobactam (Sod 3.375 gm/ Sodium Chloride) 50 mls @ 100 mls/hr IV Q6H [facility] Last Infusion: 07/15/24 12:48 Dose: Infused Documented By: ESTEVAN Lorazepam (Lorazepam 1 Mg Tablet) 1 mg PO BID PRN PRN Reason: anxiety or Insomnia Last Admin: 07/15/24 13:01 Dose: 1 mg Documented By: ESTEVAN Magnesium Hydroxide (Milk Of Magnesia 30 Ml Oral.Susp) 30 ml PO DAILY PRN PRN Reason: Constipation Melatonin (Melatonin 3 Mg Tablet) 6 mg PO BEDTIME PRN PRN Reason: Insomnia Omeprazole (Omeprazole 20 Mg Capsule.Dr) 20 mg PO DAILY@0630 [facility] Last Admin: 07/15/24 05:11 Dose: 20 mg Documented By: DALLIN Ondansetron HCl (Ondansetron Hcl 4 Mg/2 Ml Vial) 4 mg IVPUSH Q8H PRN PRN Reason: Nausea and Vomiting Last Admin: 07/15/24 11:53 Dose: 4 mg Documented By: ESTEVAN Sodium Chloride (0.9 % Sodium Chloride Flush 3 Ml Syringe) 3 ml IVFLUSH QSHIFT [facility] Last Admin: 07/15/24 07:46 Dose: 3 ml Documented By: ESTEVAN Labs 07/15/24 05:06 07/15/24 05:06 Labs: Laboratory Results - last 24 hr 07/14/24 07/14/24 07/15/24 15:10 15:37 02:32 MCV 92.0 MCH 30.8 MCHC 33.5 RDW 13.0 Plt Count 413 H MPV 8.9 L Immature Gran % (Auto) 0.6 H Neut % (Auto) 77.0 H Lymph % (Auto) 12.8 L [place] % (Auto) 8.0 Eos % (Auto) 1.3 Baso % (Auto) 0.3 Lymph # (Auto) 2.3 [place] # (Auto) 1.5 H Eos # (Auto) 0.2 Baso # (Auto) 0.1 Abs Immat Gran (auto) 0.10 H Absolute Neuts (auto) 14.0 H Absolute Nucleated RBC 0.000 Nucleated RBC % (auto) 0.0 Anion Gap 12 Estim Creat Clear Calc 94.2 Estimated GFR > 60 Random Glucose 116 H Lactic Acid 1.1 Calcium 8.9 Total Bilirubin 0.3 AST 19 ALT 18 Alkaline Phosphatase 60 C-Reactive Protein Total Protein 6.9 Albumin 3.7 Urine Color Yellow Urine Appearance Clear Urine pH 6.0 Ur Specific [place] 1.010 Urine Protein Negative Urine Glucose (UA) Negative Urine Ketones Negative Urine Blood Negative Urine Nitrite Negative Ur Leukocyte Esterase Negative 07/15/24 05:06 MCV 93.9 MCH 30.3 MCHC 32.2 RDW 13.3 Plt Count 433 H MPV 9.3 L Immature Gran % (Auto) 0.5 H Neut % (Auto) 67.4 Lymph % (Auto) 20.5 [place] % (Auto) 8.7 Eos % (Auto) 2.4 Baso % (Auto) 0.5 Lymph # (Auto) 3.1 [place] # (Auto) 1.3 H Eos # (Auto) 0.4 Baso # (Auto) 0.1 Abs Immat Gran (auto) 0.08 H Absolute Neuts (auto) 10.2 H Absolute Nucleated RBC 0.000 Nucleated RBC % (auto) 0.0 Anion Gap 10 L Estim Creat Clear Calc 92.7 Estimated GFR > 60 Random Glucose 96 Lactic Acid Calcium 7.8 L D Total Bilirubin 0.3 AST 14 ALT 11 Alkaline Phosphatase 59 C-Reactive Protein 13.38 H Total Protein 6.5 Albumin 3.4 L Urine Color Urine Appearance Urine pH Ur Specific [place] Urine Protein Urine Glucose (UA) Urine Ketones Urine Blood Urine Nitrite Ur Leukocyte Esterase Assessment and Plan (1) Acute diverticulitis: Status: Acute Plan d2, 58yo F with hx diverticulosis/diverticulitis admitted for acute sigmoid diverticulitis acute diverticulitis - pip-diego /-, clear liquids, prn hydromorphone, Gen Surg following, outpt GI follow-up CHRONIC ISSUES COPD: prn albuterol HTN: amlodipine anxiety: prn lorazepam VTE prophylaxis - enoxaparin dispo - eventual home In my clinical judgment, the patient requires continued inpatient hospitalization for the following reasons: IV ABX Total time managing care of this patient today: 35 minutes. Quality Stroke Does the patient have a stroke diagnosis?: No VTE Prior VTE?: No VTE Risk Level:: Medical - moderate - high VTE Device Contraindication: Treatment Not Indicated VTE Drug Contraindication: N/A - Med Ordered
[2024-07-15 15:09] VITALS: BP 122/60; PULSE 79; RESP 18; TEMP 36.6; O2SAT 94
[2024-07-15 19:22] VITALS: BP 143/74; PULSE 85; RESP 18; TEMP 36.4; O2SAT 93
[2024-07-15] MEDS: Enoxaparin Sodium 40 MG/0.4 ML SYRINGE SUBCUT (19:54)
[2024-07-15 23:31] VITALS: BP 146/73; PULSE 71; RESP 16; TEMP 37.1; O2SAT 95
[2024-07-16] MEDS: Lactated Ringers 1,000 ML 100 ML IVCONT ×2 (00:56→14:51)
[2024-07-16 04:00] VITALS: BP 151/85; PULSE 78; RESP 18; TEMP 36; O2SAT 94
[2024-07-16] MEDS: HYDROmorphone HCl 0.5 MG/0.5 ML SYRINGE IVPUSH (04:26)
[2024-07-16] MEDS: LORazepam 1 MG TABLET PO ×2 (05:13→17:31)
[2024-07-16] MEDS: HYDROmorphone HCl 0.5 MG/0.5 ML SYRINGE 1 MG IVPUSH ×5 (05:57→20:35)
[2024-07-16] MEDS: ondansetron HCL 4 MG/2 ML VIAL IVPUSH ×2 (05:59→17:42)
[2024-07-16] MEDS: Piperacillin Sodium/Tazobactam 3.375 GM in 0.9 % Sodium Chloride 50 ML IV ×3 (06:21→17:31)
[2024-07-16] MEDS: Omeprazole 20 MG CAPSULE.DR PO (06:23)
[2024-07-16 08:44] VITALS: BP 144/79; PULSE 76; RESP 18; TEMP 36.1; O2SAT 93
[2024-07-16] MEDS: amLODIPine Besylate 5 MG TABLET PO (08:59)
[2024-07-16] MEDS: Gabapentin 600 MG TABLET PO ×3 (09:00→20:33)
[2024-07-16] MEDS: 0.9 % Sodium Chloride Flush 3 ML SYRINGE IVFLUSH ×2 (09:00→20:35)
--- NOTE | 2024-07-16 09:36 | P.PNGS_ITS ---
Subjective Subjective Date of Service: 07/16/24 Interval history: Left-sided abdominal pain slightly improved However, she has had severe diarrhea overnight No nausea or vomiting No fever Physical Exam 2 Vital Signs: Vital Signs: Last Vital Signs Temp 96.9 F 07/16/24 08:44 Pulse 76 07/16/24 08:44 Resp 18 07/16/24 08:44 BP 144/79 H 07/16/24 08:44 Pulse Ox 93 07/16/24 08:44 O2 Del Method Room Air 07/16/24 08:44 BMI result Body Mass Index 32.1 Const: General: comfortable and no acute distress Resp: Effort & Inspection: normal respiratory effort Cardio: Rate: regular rate GI: Palpation (GI): Soft to palpation, not firm, Tenderness to palpation present (GI) (Some tenderness on the left side and lower abdomen) and no guarding Objective Data Active Medications Acetaminophen (Acetaminophen 325 Mg Tablet) 650 mg PO Q6H PRN PRN Reason: Pain, Mild 1-3,fever,headache Last Admin: 07/14/24 19:23 Dose: 650 mg Documented By: SAM Albuterol Sulfate (Albuterol Sulfate 90 Mcg 8 Gm Inhaler) 1 puff INHALE Q6H PRN PRN Reason: wheezing Amlodipine Besylate (Amlodipine Besylate 5 Mg Tablet) 5 mg PO DAILY [facility]; Protocol Last Admin: 07/16/24 08:59 Dose: 5 mg Documented By: ESTEVAN Calcium Carbonate (Calcium Carbonate 750 Mg Tab.Chew) 750 mg PO Q4H PRN PRN Reason: Heartburn Enoxaparin Sodium (Enoxaparin Sodium 40 Mg/0.4 Ml Syringe) 40 mg SUBCUT Q24H [facility] Last Admin: 07/15/24 19:54 Dose: 40 mg Documented By: DALLIN Gabapentin (Gabapentin 600 Mg Tablet) 600 mg PO TID [facility] Last Admin: 07/16/24 09:00 Dose: 600 mg Documented By: ESTEVAN Hydromorphone HCl (Hydromorphone Hcl 0.5 Mg/0.5 Ml Syringe) 1 mg IVPUSH Q3H PRN; Protocol PRN Reason: Pain, Severe (Pain Scale 7-10) Last Admin: 07/16/24 09:00 Dose: 1 mg Documented By: ESTEVAN Lactated Ringer's (Lr) 1,000 mls @ 100 mls/hr IVCONT .Q10H [facility] Last Admin: 07/16/24 00:56 Dose: 100 mls/hr Documented By: DALLIN Piperacillin Sod/Tazobactam (Sod 3.375 gm/ Sodium Chloride) 50 mls @ 100 mls/hr IV Q6H [facility] Last Infusion: 07/16/24 07:00 Dose: Infused Documented By: ESTEVAN Lorazepam (Lorazepam 1 Mg Tablet) 1 mg PO BID PRN PRN Reason: anxiety or Insomnia Last Admin: 07/16/24 05:13 Dose: 1 mg Documented By: DALLIN Comments: per Dr. Cesar german to give early Magnesium Hydroxide (Milk Of Magnesia 30 Ml Oral.Susp) 30 ml PO DAILY PRN PRN Reason: Constipation Melatonin (Melatonin 3 Mg Tablet) 6 mg PO BEDTIME PRN PRN Reason: Insomnia Omeprazole (Omeprazole 20 Mg Capsule.) 20 mg PO DAILY@0630 [facility] Last Admin: 07/16/24 06:23 Dose: 20 mg Documented By: DALLIN Ondansetron HCl (Ondansetron Hcl 4 Mg/2 Ml Vial) 4 mg IVPUSH Q8H PRN PRN Reason: Nausea and Vomiting Last Admin: 07/16/24 05:59 Dose: 4 mg Documented By: DALLIN Sodium Chloride (0.9 % Sodium Chloride Flush 3 Ml Syringe) 3 ml IVFLUSH QSHIFT [facility] Last Admin: 07/16/24 09:00 Dose: 3 ml Documented By: ESTEVAN Labs 07/15/24 05:06 07/15/24 05:06 Microbiology Microbiology Results: Microbiology 07/14/24 15:47 Blood Culture - Preliminary Blood - Venous No growth after 24 hours. 07/14/24 15:37 Blood Culture - Preliminary Blood - Venous No growth after 24 hours. Procedures Date of Service Date of Service: 07/16/24 Progress Note: A&P Assessment and plan (1) Acute diverticulitis: Status: Acute Assessment and Plan: Abdomen remained soft and benign She has had diarrhea Check stools for C diff Would not advance diet for now because of complaints of pain WBC continues to trend down Clinically looks well Encouraged to get out of bed and ambulate Time Spent With Patient Time: Total time managing care of this patient today ____ minutes. Quality Stroke Does the patient have a stroke diagnosis?: No VTE Prior VTE?: No VTE Risk Level:: Medical - moderate - high VTE Device Contraindication: Treatment Not Indicated VTE Drug Contraindication: N/A - Med Ordered
[2024-07-16] MEDS: Acetaminophen 325 MG TABLET 650 MG PO (11:54)
[2024-07-16] MEDS: Calcium Carbonate 750 MG TAB.CHEW PO (11:59)
[2024-07-16] MEDS: diphenhydrAMINE HCL 50 MG/ML VIAL 25 MG IVPUSH (12:19)
[2024-07-16 12:41] VITALS: BP 147/81; PULSE 80; RESP 12; TEMP 36.6; O2SAT 92
--- NOTE | 2024-07-16 14:51 | HO.PM.IMPN ---
Subjective Subjective Date of Service: 07/16/24 Interval History: had watery diarrhea overnight c/o ongoing LLQ pain and nausea Review of Systems Review of Systems: Yes all other systems are reviewed and are negative Physical Exam Vital Signs: Vital Signs: Last Vital Signs Temp 97.8 F 07/16/24 12:41 Pulse 80 07/16/24 12:41 Resp 12 07/16/24 12:41 BP 147/81 H 07/16/24 12:41 Pulse Ox 92 07/16/24 12:41 O2 Del Method Room Air 07/16/24 12:41 BMI result Body Mass Index 32.1 Gen: in no acute distress HEENT: sclera anicteric, moist mucus membranes Neck: supple Lungs: clear to auscultation bilaterally Heart: regular rate and rhythm, no murmurs Abd: soft, LLQ tender without rebound, non-distended Ext: no edema Skin: warm/well-perfused Neuro: alert and oriented x3, no focal findings Psych: appropriate affect Objective Data Active Medications Acetaminophen (Acetaminophen 325 Mg Tablet) 650 mg PO Q6H PRN PRN Reason: Pain, Mild 1-3,fever,headache Last Admin: 07/16/24 11:54 Dose: 650 mg Documented By: ESTEVAN Albuterol Sulfate (Albuterol Sulfate 90 Mcg 8 Gm Inhaler) 1 puff INHALE Q6H PRN PRN Reason: wheezing Amlodipine Besylate (Amlodipine Besylate 5 Mg Tablet) 5 mg PO DAILY [facility]; Protocol Last Admin: 07/16/24 08:59 Dose: 5 mg Documented By: ESTEVAN Calcium Carbonate (Calcium Carbonate 750 Mg Tab.Chew) 750 mg PO Q4H PRN PRN Reason: Heartburn Last Admin: 07/16/24 11:59 Dose: 750 mg Documented By: ESTEVAN Diphenhydramine HCl (Diphenhydramine Hcl 50 Mg/Ml Vial) 25 mg IVPUSH Q4H PRN PRN Reason: Itching Last Admin: 07/16/24 12:19 Dose: 25 mg Documented By: ESTEVAN Enoxaparin Sodium (Enoxaparin Sodium 40 Mg/0.4 Ml Syringe) 40 mg SUBCUT Q24H [facility] Last Admin: 07/15/24 19:54 Dose: 40 mg Documented By: DALLIN Gabapentin (Gabapentin 600 Mg Tablet) 600 mg PO TID [facility] Last Admin: 07/16/24 14:51 Dose: 600 mg Documented By: ESTEVAN Hydromorphone HCl (Hydromorphone Hcl 0.5 Mg/0.5 Ml Syringe) 1 mg IVPUSH Q3H PRN; Protocol PRN Reason: Pain, Severe (Pain Scale 7-10) Last Admin: 07/16/24 12:00 Dose: 1 mg Documented By: ESTEVAN Lactated Ringer's (Lr) 1,000 mls @ 100 mls/hr IVCONT .Q10H [facility] Last Admin: 07/16/24 14:51 Dose: 100 mls/hr Documented By: ESTEVAN Piperacillin Sod/Tazobactam (Sod 3.375 gm/ Sodium Chloride) 50 mls @ 100 mls/hr IV Q6H [facility] Last Infusion: 07/16/24 12:50 Dose: Infused Documented By: ESTEVAN Lorazepam (Lorazepam 1 Mg Tablet) 1 mg PO BID PRN PRN Reason: anxiety or Insomnia Last Admin: 07/16/24 05:13 Dose: 1 mg Documented By: DALLIN Comments: per Dr. Cesar german to give early Magnesium Hydroxide (Milk Of Magnesia 30 Ml Oral.Susp) 30 ml PO DAILY PRN PRN Reason: Constipation Melatonin (Melatonin 3 Mg Tablet) 6 mg PO BEDTIME PRN PRN Reason: Insomnia Omeprazole (Omeprazole 20 Mg Capsule.) 20 mg PO DAILY@0630 [facility] Last Admin: 07/16/24 06:23 Dose: 20 mg Documented By: DALLIN Ondansetron HCl (Ondansetron Hcl 4 Mg/2 Ml Vial) 4 mg IVPUSH Q8H PRN PRN Reason: Nausea and Vomiting Last Admin: 07/16/24 05:59 Dose: 4 mg Documented By: DALLIN Sodium Chloride (0.9 % Sodium Chloride Flush 3 Ml Syringe) 3 ml IVFLUSH QSHIFT [facility] Last Admin: 07/16/24 09:00 Dose: 3 ml Documented By: ESTEVAN Labs 07/15/24 05:06 07/15/24 05:06 Microbiology Microbiology Results: Microbiology 07/14/24 15:47 Blood Culture - Preliminary Blood - Venous No growth after 24 hours. 07/14/24 15:37 Blood Culture - Preliminary Blood - Venous No growth after 24 hours. Assessment and Plan (1) Acute diverticulitis: Status: Acute Plan d3, 58yo F with hx diverticulosis/diverticulitis admitted for recurrent acute sigmoid diverticulitis acute diverticulitis - pip-diego 07/14-, clear liquids, prn hydromorphone, Gen Surg following, outpt GI follow-up - if fails to improve may need re-imaging - check stool for Cdiff + PCR GI panel CHRONIC ISSUES COPD: prn albuterol HTN: amlodipine anxiety: prn lorazepam VTE prophylaxis - enoxaparin dispo - eventual home In my clinical judgment, the patient requires continued inpatient hospitalization for the following reasons: IV ABX Total time managing care of this patient today: 35 minutes. Quality Stroke Does the patient have a stroke diagnosis?: No VTE Prior VTE?: No VTE Risk Level:: Medical - moderate - high VTE Device Contraindication: Treatment Not Indicated VTE Drug Contraindication: N/A - Med Ordered
[2024-07-16 16:12] VITALS: BP 137/64; PULSE 77; RESP 20; TEMP 36.1; O2SAT 94
[2024-07-16 17:49] LABS: CDiff Gene PCR NEGATIVE (Negative)
[2024-07-16 18:10] LABS: Leukocytes Stool Qualitative NEGATIVE (NEGATIVE)
--- NOTE | 2024-07-16 18:44 | PC.NURSE ---
Patient is impulsive and consistently gets out of bed with out ringing and shuts bed alarm off on her own.
[2024-07-16 19:13] VITALS: BP 135/61; PULSE 80; RESP 18; TEMP 36.3; O2SAT 93
[2024-07-16] MEDS: Enoxaparin Sodium 40 MG/0.4 ML SYRINGE SUBCUT (20:33)
[2024-07-16 23:13] VITALS: BP 108/57; PULSE 77; RESP 18; TEMP 36.4; O2SAT 86
[2024-07-17] MEDS: Piperacillin Sodium/Tazobactam 3.375 GM in 0.9 % Sodium Chloride 50 ML IV ×5 (00:01→23:28)
[2024-07-17] MEDS: HYDROmorphone HCl 0.5 MG/0.5 ML SYRINGE 1 MG IVPUSH ×6 (00:06→22:12)
[2024-07-17] MEDS: LORazepam 1 MG TABLET PO ×3 (00:14→20:31)
[2024-07-17 04:00] VITALS: BP 139/90; PULSE 91; RESP 18; TEMP 36.4; O2SAT 90
[2024-07-17] MEDS: Omeprazole 20 MG CAPSULE.DR PO (05:19)
[2024-07-17 06:23] LABS: Hematocrit 37.1 % (37.0-47.0); Hemoglobin 12.3 g/dl (12.0-16.0); Mean Corpuscular HGB Conc 33.2 g/dl (31.0-35.0); Mean Corpuscular Hemoglobin 30.8 pg (27.0-33.0); Mean Platelet Volume 9.2 fL (9.4-12.3); Platelet Count 432 X10*3/uL (160-400); Red Blood Count 3.99 X10*6/uL (4.20-5.50); Red Cell Distribution Width 12.8 % (11.0-16.0); White Blood Count 9.8 X10*3/uL (4.8-10.8)
[2024-07-17 06:26] LABS: C Reactive Protein 6.05 mg/dL (< or = 0.50)
[2024-07-17 07:30] VITALS: BP 137/62; PULSE 82; RESP 16; TEMP 37; O2SAT 89
--- NOTE | 2024-07-17 07:32 | P.PNGS_ITS ---
Subjective Subjective Date of Service: 07/17/24 <Jasmine Almendarez PA-C - Last Filed: 07/17/24 07:34> 07/17/24 <Gurvinder Thorpe MD - Last Filed: 07/17/24 07:59> Interval history: Feels significantly improved and wants solid food. Diarrhea persists. Denies nausea. <Jasmine Almendarez PA-C - Last Filed: 07/17/24 07:34> Physical Exam 2 Vital Signs: Vital Signs: Last Vital Signs Temp 97.6 F 07/17/24 04:00 Pulse 91 07/17/24 04:00 Resp 18 07/17/24 04:00 BP 139/90 H 07/17/24 04:00 Pulse Ox 90 L 07/17/24 04:00 O2 Del Method Room Air 07/17/24 04:00 BMI result Body Mass Index 32.1 <LEENA Polo Last Filed: 07/17/24 07:34> Const: General: comfortable, no acute distress and alert <Jasmine Almendarez PA-C - Last Filed: 07/17/24 07:34> Orientation/consciousness: patient oriented x3 <LEENA Polo Last Filed: 07/17/24 07:34> Resp: Effort & Inspection: normal respiratory effort <LEENA Polo Last Filed: 07/17/24 07:34> GI: Inspection: No distended <LEENA Polo Last Filed: 07/17/24 07:34> Palpation (GI): Soft to palpation, Tenderness to palpation present (GI) (moderate left sided tenderness into LLQ) with no rebound tenderness and no guarding <LEENA Polo Last Filed: 07/17/24 07:34> Percussion: Yes normal to percussion <LEENA Polo Last Filed: 07/17/24 07:34> Skin: General skin exam: no rashes or lesions noted <LEENA Polo Last Filed: 07/17/24 07:34> Neuro: General: patient oriented x3 and moves all extremities <Jasmine Almendarez PA-C - Last Filed: 07/17/24 07:34> Objective Data Active Medications Acetaminophen (Acetaminophen 325 Mg Tablet) 650 mg PO Q6H PRN PRN Reason: Pain, Mild 1-3,fever,headache Last Admin: 07/16/24 11:54 Dose: 650 mg Documented By: ESTEVAN Albuterol Sulfate (Albuterol Sulfate 90 Mcg 8 Gm Inhaler) 1 puff INHALE Q6H PRN PRN Reason: wheezing Amlodipine Besylate (Amlodipine Besylate 5 Mg Tablet) 5 mg PO DAILY [facility]; Protocol Last Admin: 07/16/24 08:59 Dose: 5 mg Documented By: ESTEVAN Calcium Carbonate (Calcium Carbonate 750 Mg Tab.Chew) 750 mg PO Q4H PRN PRN Reason: Heartburn Last Admin: 07/16/24 11:59 Dose: 750 mg Documented By: ESTEVAN Diphenhydramine HCl (Diphenhydramine Hcl 50 Mg/Ml Vial) 25 mg IVPUSH Q4H PRN PRN Reason: Itching Last Admin: 07/16/24 12:19 Dose: 25 mg Documented By: ESTEVAN Enoxaparin Sodium (Enoxaparin Sodium 40 Mg/0.4 Ml Syringe) 40 mg SUBCUT Q24H [facility] Last Admin: 07/16/24 20:33 Dose: 40 mg Documented By: GIOVANA Gabapentin (Gabapentin 600 Mg Tablet) 600 mg PO TID [facility] Last Admin: 07/16/24 20:33 Dose: 600 mg Documented By: GIOVANA Hydromorphone HCl (Hydromorphone Hcl 0.5 Mg/0.5 Ml Syringe) 1 mg IVPUSH Q3H PRN; Protocol PRN Reason: Pain, Severe (Pain Scale 7-10) Last Admin: 07/17/24 05:19 Dose: 1 mg Documented By: GIOVANA Piperacillin Sod/Tazobactam (Sod 3.375 gm/ Sodium Chloride) 50 mls @ 100 mls/hr IV Q6H [facility] Last Infusion: 07/17/24 05:57 Dose: Infused Documented By: GIOVANA Lorazepam (Lorazepam 1 Mg Tablet) 1 mg PO BID PRN PRN Reason: anxiety or Insomnia Last Admin: 07/17/24 00:14 Dose: 1 mg Documented By: GIOVANA Magnesium Hydroxide (Milk Of Magnesia 30 Ml Oral.Susp) 30 ml PO DAILY PRN PRN Reason: Constipation Melatonin (Melatonin 3 Mg Tablet) 6 mg PO BEDTIME PRN PRN Reason: Insomnia Omeprazole (Omeprazole 20 Mg Capsule.Dr) 20 mg PO DAILY@0630 [facility] Last Admin: 07/17/24 05:19 Dose: 20 mg Documented By: GIOVANA Ondansetron HCl (Ondansetron Hcl 4 Mg/2 Ml Vial) 4 mg IVPUSH Q8H PRN PRN Reason: Nausea and Vomiting Last Admin: 07/16/24 17:42 Dose: 4 mg Documented By: ESTEVAN Sodium Chloride (0.9 % Sodium Chloride Flush 3 Ml Syringe) 3 ml IVFLUSH QSHIFT [facility] Last Admin: 07/16/24 20:35 Dose: 3 ml Documented By: GIOVANA <Jasmine Almendarez PA-C - Last Filed: 07/17/24 07:34> Labs CBC & Chem 7: 07/17/24 05:45 07/15/24 05:06 <Jasmine Almendarez PA-C - Last Filed: 07/17/24 07:34> Labs: Laboratory Results - last 24 hr 07/16/24 07/17/24 15:35 05:45 MCV 93.0 MCH 30.8 MCHC 33.2 RDW 12.8 Plt Count 432 H MPV 9.2 L Absolute Nucleated RBC 0.000 Nucleated RBC % (auto) 0.0 C-Reactive Protein 6.05 H Stool Leukocytes, Qual NEGATIVE C. difficile Tox B Gene NEGATIVE <Jasmine Almendarez PA-C - Last Filed: 07/17/24 07:34> Microbiology Microbiology Results: Microbiology 07/14/24 15:47 Blood Culture - Preliminary Blood - Venous No growth after 48 hours. 07/14/24 15:37 Blood Culture - Preliminary Blood - Venous No growth after 48 hours. <Jasmine Almendarez PA-C - Last Filed: 07/17/24 07:34> Procedures Date of Service Date of Service: 07/17/24 <Jasmine Almendarez PA-C - Last Filed: 07/17/24 07:34> 07/17/24 <Gurvinder Thorpe MD - Last Filed: 07/17/24 07:59> Progress Note: A&P Assessment and plan (1) Acute diverticulitis: Status: Acute <Jasmine Almendarez PA-C - Last Filed: 07/17/24 07:34> Assessment and Plan: feels much better has loose stools Cdiff negative abd w/ some tenderness on LLQ but seems better exam benign slowly advance diet seen and examined independently <Gurvinder Thorpe MD - Last Filed: 07/17/24 07:59> Assessment and Plan: Slowly improving. C diff negative. Abd still with moderate left sided tenderness, will advance diet slowly. Can advance to full liquids today. < Jasmine Almendarez PA-C - Last Filed: 07/17/24 07:34> Time Spent With Patient Time: Total time managing care of this patient today ____ minutes. <Jasmine Almendarez PA-C - Last Filed: 07/17/24 07:34> Quality Stroke Does the patient have a stroke diagnosis?: No <Jasmine Almendarez PA-C - Last Filed: 07/17/24 07:34> VTE Prior VTE?: No <Jasmine Almendarez PA-C - Last Filed: 07/17/24 07:34> VTE Risk Level:: Medical - moderate - high <Jasmine Almendarez PA-C - Last Filed: 07/17/24 07:34> VTE Device Contraindication: Treatment Not Indicated <Jasmine Almendarez PA-C - Last Filed: 07/17/24 07:34> VTE Drug Contraindication: N/A - Med Ordered <Jasmine Almendarez PA-C - Last Filed: 07/17/24 07:34>
[2024-07-17] MEDS: 0.9 % Sodium Chloride Flush 3 ML SYRINGE IVFLUSH ×3 (09:54→23:28)
[2024-07-17] MEDS: Gabapentin 600 MG TABLET PO ×3 (09:54→20:31)
[2024-07-17] MEDS: amLODIPine Besylate 5 MG TABLET PO (09:54)
--- NOTE | 2024-07-17 11:36 | P.PNIM_ITS ---
Subjective Subjective Date of Service: 07/17/24 Interval History: LLQ pain improved but still having diarrhea no N/V no fever Review of Systems Review of Systems: Yes all other systems are reviewed and are negative Physical Exam 2 Vital Signs: Vital Signs: Last Vital Signs Temp 98.6 F 07/17/24 07:30 Pulse 82 07/17/24 07:30 Resp 16 07/17/24 07:30 BP 137/62 07/17/24 07:30 Pulse Ox 89 L 07/17/24 07:30 O2 Del Method Room Air 07/17/24 07:30 BMI result Body Mass Index 32.1 Gen: in no acute distress HEENT: sclera anicteric, moist mucus membranes Neck: supple Lungs: clear to auscultation bilaterally Heart: regular rate and rhythm, no murmurs Abd: soft, LLQ tender without rebound, non-distended Ext: no edema Skin: warm/well-perfused Neuro: alert and oriented x3, no focal findings Psych: appropriate affect Objective Data Active Medications Acetaminophen (Acetaminophen 325 Mg Tablet) 650 mg PO Q6H PRN PRN Reason: Pain, Mild 1-3,fever,headache Last Admin: 07/16/24 11:54 Dose: 650 mg Documented By: ESTEVAN Albuterol Sulfate (Albuterol Sulfate 90 Mcg 8 Gm Inhaler) 1 puff INHALE Q6H PRN PRN Reason: wheezing Amlodipine Besylate (Amlodipine Besylate 5 Mg Tablet) 5 mg PO DAILY [facility]; Protocol Last Admin: 07/17/24 09:54 Dose: 5 mg Documented By: AMISH Calcium Carbonate (Calcium Carbonate 750 Mg Tab.Chew) 750 mg PO Q4H PRN PRN Reason: Heartburn Last Admin: 07/16/24 11:59 Dose: 750 mg Documented By: ESTEVAN Diphenhydramine HCl (Diphenhydramine Hcl 50 Mg/Ml Vial) 25 mg IVPUSH Q4H PRN PRN Reason: Itching Last Admin: 07/16/24 12:19 Dose: 25 mg Documented By: ESTEVAN Enoxaparin Sodium (Enoxaparin Sodium 40 Mg/0.4 Ml Syringe) 40 mg SUBCUT Q24H [facility] Last Admin: 07/16/24 20:33 Dose: 40 mg Documented By: GIOVANA Gabapentin (Gabapentin 600 Mg Tablet) 600 mg PO TID [facility] Last Admin: 07/17/24 09:54 Dose: 600 mg Documented By: AMISH Hydromorphone HCl (Hydromorphone Hcl 0.5 Mg/0.5 Ml Syringe) 1 mg IVPUSH Q3H PRN; Protocol PRN Reason: Pain, Severe (Pain Scale 7-10) Last Admin: 07/17/24 09:54 Dose: 1 mg Documented By: AMISH Piperacillin Sod/Tazobactam (Sod 3.375 gm/ Sodium Chloride) 50 mls @ 100 mls/hr IV Q6H [facility] Last Admin: 07/17/24 11:13 Dose: 100 mls/hr Documented By: AMISH Lorazepam (Lorazepam 1 Mg Tablet) 1 mg PO BID PRN PRN Reason: anxiety or Insomnia Last Admin: 07/17/24 11:14 Dose: 1 mg Documented By: AMISH Magnesium Hydroxide (Milk Of Magnesia 30 Ml Oral.Susp) 30 ml PO DAILY PRN PRN Reason: Constipation Melatonin (Melatonin 3 Mg Tablet) 6 mg PO BEDTIME PRN PRN Reason: Insomnia Omeprazole (Omeprazole 20 Mg Capsule.Dr) 20 mg PO DAILY@0630 [facility] Last Admin: 07/17/24 05:19 Dose: 20 mg Documented By: GIVOANA Ondansetron HCl (Ondansetron Hcl 4 Mg/2 Ml Vial) 4 mg IVPUSH Q8H PRN PRN Reason: Nausea and Vomiting Last Admin: 07/16/24 17:42 Dose: 4 mg Documented By: ESTEVAN Sodium Chloride (0.9 % Sodium Chloride Flush 3 Ml Syringe) 3 ml IVFLUSH QSHIFT [facility] Last Admin: 07/17/24 09:54 Dose: 3 ml Documented By: AMISH Labs 07/17/24 05:45 07/15/24 05:06 Labs: Laboratory Results - last 24 hr 07/16/24 07/17/24 15:35 05:45 MCV 93.0 MCH 30.8 MCHC 33.2 RDW 12.8 Plt Count 432 H MPV 9.2 L Absolute Nucleated RBC 0.000 Nucleated RBC % (auto) 0.0 C-Reactive Protein 6.05 H Stool Leukocytes, Qual NEGATIVE C. difficile Tox B Gene NEGATIVE Microbiology Microbiology Results: Microbiology 07/14/24 15:47 Blood Culture - Preliminary Blood - Venous No growth after 48 hours. 07/14/24 15:37 Blood Culture - Preliminary Blood - Venous No growth after 48 hours. Assessment and Plan (1) Acute diverticulitis: Status: Acute Plan d4 for 58yo F with hx diverticulosis/diverticulitis admitted for recurrent acute sigmoid diverticulitis acute diverticulitis - pip-diego 07/14-, advance from clear liquids to solids today, prn hydromorphone, Gen Surg following, GI consult - stool negative for Cdiff CHRONIC ISSUES COPD: prn albuterol HTN: amlodipine anxiety: prn lorazepam VTE prophylaxis - enoxaparin dispo - eventual home In my clinical judgment, the patient requires continued inpatient hospitalization for the following reasons: IV ABX Total time managing care of this patient today: 35 minutes. Quality Stroke Does the patient have a stroke diagnosis?: No VTE Prior VTE?: No VTE Risk Level:: Medical - moderate - high VTE Device Contraindication: Treatment Not Indicated VTE Drug Contraindication: N/A - Med Ordered
[2024-07-17 12:00] VITALS: BP 127/63; PULSE 85; RESP 16; TEMP 36.2; O2SAT 92
[2024-07-17 12:04] LABS: Adenovirus F 40/41 Not Detected (Not Detect.); Astrovirus Not Detected (Not Detect.); Campylobacter Not Detected (Not Detect.); Cryptosporidium Not Detected (Not Detect.); Cyclospora cayetanensis Not Detected (Not Detect.); E. coli EAEC Not Detected (Not Detect.); E. coli EPEC Not Detected (Not Detect.); E. coli ETEC Not Detected (Not Detect.); E. coli STEC Not Detected (Not Detect.); Entamoeba histolytica Not Detected (Not Detect.); Giardia lamblia Not Detected (Not Detect.); Norovirus GI/GII Not Detected (Not Detect.); Plesiomonas shigelloides Not Detected (Not Detect.); Rotavirus A Not Detected (Not Detect.); Salmonella Not Detected (Not Detect.); Sapovirus Not Detected (Not Detect.); Shigella sp./EIEC Not Detected (Not Detect.); Vibrio Not Detected (Not Detect.); Vibrio Cholerae Not Detected (Not Detect.); Yersinia enterocolitica Not Detected (Not Detect.)
--- NOTE | 2024-07-17 12:29 | MHC.CM.PN ---
CM MET WITH PT AT HER REQUEST SHE SAYS SHE WAS TOLD SHE COULD DC TOMORROW BUT WILL NEED TO GO IN THE MORNING SHE SAYS IF SHE CANNOT DC BY 1100 HOURS, SHE WILL NOT HAVE TRANSPORT HOME CM WILL RELAY INFORMATION TO MD/RN
[2024-07-17 15:21] VITALS: BP 114/56; PULSE 85; RESP 16; TEMP 36.2; O2SAT 91
[2024-07-17] MEDS: ondansetron HCL 4 MG/2 ML VIAL IVPUSH (18:04)
[2024-07-17 19:15] VITALS: BP 143/62; PULSE 86; RESP 16; TEMP 36.2; O2SAT 93
[2024-07-17] MEDS: Enoxaparin Sodium 40 MG/0.4 ML SYRINGE SUBCUT (19:54)
[2024-07-17] MEDS: diphenhydrAMINE HCL 50 MG/ML VIAL 25 MG IVPUSH (22:12)
[2024-07-17 23:56] VITALS: BP 128/59; PULSE 84; RESP 18; TEMP 36.8; O2SAT 90
--- NOTE | 2024-07-18 01:17 | CONS_ITS ---
DATE OF SERVICE: 07/17/2024 REFERRING PHYSICIAN: Purvi Stevens MD REASON FOR CONSULTATION: Diverticulitis. HISTORY OF PRESENT ILLNESS: The patient is a pleasant 58-year-old woman, who was admitted to the hospital on July 14 after presenting to the emergency room with left lower quadrant pain. She had been previously seen in another emergency department and evaluated. She was diagnosed with diverticulitis and apparently given antibiotics, but is unsure on the details as she cannot recall the antibiotics. She presented to the emergency department on July 14, where she was evaluated. She was found to have a white count of 18.2, and CT scanning was subsequently obtained, which was reviewed. This is interpreted as showing acute uncomplicated diverticulitis with no abscess or free air. She was admitted to the hospital and started on antibiotics. Since admission, she has had improvement in her symptoms and is beginning to tolerate a diet. She will try solid food later today. She has had diarrheal symptoms, likely related to the antibiotics and C diff testing has been negative. She was previously evaluated as an outpatient for colonoscopy because of a history of diverticular disease, but did not present for her colonoscopy. We discussed this today. PAST MEDICAL HISTORY: 1. Diverticulitis. 2. Asthma/COPD. 3. Hypertension. 4. Urinary incontinence. 5. Hyperlipidemia. 6. Glaucoma. 7. PTSD/bipolar disorder. 8. Peripheral neuropathy. 9. Back pain. 10. Vitamin D deficiency. 11. Colonoscopy 03/19, normal sigmoid biopsies, tubular adenoma, 5 year followup due 03/24. 12. Gestational diabetes. CURRENT MEDICATIONS: Her current medication list is reviewed in the chart. ALLERGIES: MORPHINE. FAMILY HISTORY: This is reviewed with the patient and is noncontributory. SOCIAL HISTORY: There is no current tobacco, alcohol, or substance abuse. REVIEW OF SYSTEMS: SKIN: No pruritus. HEENT: Negative. CARDIOPULMONARY: No shortness of breath or chest pain. GASTROINTESTINAL: As above. GENITOURINARY: Negative. NEUROPSYCHIATRIC: Negative. PHYSICAL EXAMINATION: GENERAL: Shows a pleasant female lying in bed. VITAL SIGNS: Reviewed in the electronic medical record and are stable. SKIN: Anicteric. HEENT: Shows no scleral icterus. NECK: Without lymphadenopathy or thyromegaly. LUNGS: Clear. HEART: Shows a regular rate and rhythm. S1, S2. No murmur. ABDOMEN: Soft. Bowel sounds are present. There is some left lower quadrant tenderness to palpation with mild rebound discomfort. There is no guarding. EXTREMITIES: Without edema. LABORATORY DATA: Reviewed as are imaging studies. IMPRESSION: Diverticulitis. Her presentation appears consistent with uncomplicated diverticulitis. I agree with advancing her diet and continuing intravenous antibiotics as her clinical exam improves. She can be switched to oral antibiotics and discharged for outpatient followup. I did recommend that she have followup colonoscopy in 8 to 12 weeks following this acute episode and stressed the need for compliance. She appears to understand this. She has had transportation issues before and if this is the case, she can schedule her procedure closer to home, where transportation would be easier. We discussed the low residue diet and eventually transitioning back to a high-fiber diet. Thanks for asking me to see her. I will follow her in the hospital with you. MD ESTEPHANIE Phoenix/ALEX / [phone]
[2024-07-18] MEDS: HYDROmorphone HCl 0.5 MG/0.5 ML SYRINGE 1 MG IVPUSH ×2 (01:55→06:37)
[2024-07-18 03:30] VITALS: BP 137/78; PULSE 86; RESP 18; TEMP 36.6; O2SAT 91
[2024-07-18] MEDS: Piperacillin Sodium/Tazobactam 3.375 GM in 0.9 % Sodium Chloride 50 ML IV (05:41)
[2024-07-18] MEDS: Omeprazole 20 MG CAPSULE.DR PO (05:42)
[2024-07-18] MEDS: ondansetron HCL 4 MG/2 ML VIAL IVPUSH (06:40)
[2024-07-18] MEDS: 0.9 % Sodium Chloride Flush 3 ML SYRINGE IVFLUSH (07:29)
[2024-07-18 08:00] VITALS: BP 130/59; PULSE 86; RESP 16; TEMP 36.4; O2SAT 91
--- NOTE | 2024-07-18 08:13 | PM.PNGS ---
Subjective Subjective Date of Service: 07/18/24 Interval history: Feels well this morning She says pain is minimal She says she had regular food last night and tolerated this well Physical Exam Vital Signs: Vital Signs: Last Vital Signs Temp 97.5 F 07/18/24 08:00 Pulse 86 07/18/24 08:00 Resp 16 07/18/24 08:00 BP 130/59 L 07/18/24 08:00 Pulse Ox 91 L 07/18/24 08:00 O2 Del Method Room Air 07/18/24 08:00 BMI result Body Mass Index 32.1 Const: General: comfortable and no acute distress Resp: Effort & Inspection: normal respiratory effort GI: Palpation (GI): Soft to palpation, not firm, nontender and no guarding Objective Data Active Medications Acetaminophen (Acetaminophen 325 Mg Tablet) 650 mg PO Q6H PRN PRN Reason: Pain, Mild 1-3,fever,headache Last Admin: 07/16/24 11:54 Dose: 650 mg Documented By: ESTEVAN Albuterol Sulfate (Albuterol Sulfate 90 Mcg 8 Gm Inhaler) 1 puff INHALE Q6H PRN PRN Reason: wheezing Amlodipine Besylate (Amlodipine Besylate 5 Mg Tablet) 5 mg PO DAILY [facility]; Protocol Last Admin: 07/17/24 09:54 Dose: 5 mg Documented By: AMISH Amoxicillin/Clavulanate Potassium (Amoxicillin/Potassium Clav 875 Mg Tablet) 875 mg PO Q12H [facility] Benzocaine (Throat Lozenge, Medicated Lozenge) 1 lozenge MUCOUS MEM Q2H PRN PRN Reason: Sore Throat Calcium Carbonate (Calcium Carbonate 750 Mg Tab.Chew) 750 mg PO Q4H PRN PRN Reason: Heartburn Last Admin: 07/16/24 11:59 Dose: 750 mg Documented By: ESTEVAN Diphenhydramine HCl (Diphenhydramine Hcl 50 Mg/Ml Vial) 25 mg IVPUSH Q4H PRN PRN Reason: Itching Last Admin: 07/17/24 22:12 Dose: 25 mg Documented By: CIARA Enoxaparin Sodium (Enoxaparin Sodium 40 Mg/0.4 Ml Syringe) 40 mg SUBCUT Q24H [facility] Last Admin: 07/17/24 19:54 Dose: 40 mg Documented By: NANCY Gabapentin (Gabapentin 600 Mg Tablet) 600 mg PO TID [facility] Last Admin: 07/17/24 20:31 Dose: 600 mg Documented By: CIARA Hydromorphone HCl (Hydromorphone Hcl 0.5 Mg/0.5 Ml Syringe) 1 mg IVPUSH Q3H PRN; Protocol PRN Reason: Pain, Severe (Pain Scale 7-10) Last Admin: 07/18/24 06:37 Dose: 1 mg Documented By: CIARA Lorazepam (Lorazepam 1 Mg Tablet) 1 mg PO BID PRN PRN Reason: anxiety or Insomnia Last Admin: 07/17/24 20:31 Dose: 1 mg Documented By: CIARA Magnesium Hydroxide (Milk Of Magnesia 30 Ml Oral.Susp) 30 ml PO DAILY PRN PRN Reason: Constipation Melatonin (Melatonin 3 Mg Tablet) 6 mg PO BEDTIME PRN PRN Reason: Insomnia Omeprazole (Omeprazole 20 Mg Capsule.Dr) 20 mg PO DAILY@0630 [facility] Last Admin: 07/18/24 05:42 Dose: 20 mg Documented By: CIARA Ondansetron HCl (Ondansetron Hcl 4 Mg/2 Ml Vial) 4 mg IVPUSH Q8H PRN PRN Reason: Nausea and Vomiting Last Admin: 07/18/24 06:40 Dose: 4 mg Documented By: CIARA Sodium Chloride (0.9 % Sodium Chloride Flush 3 Ml Syringe) 3 ml IVFLUSH QSHIFT [facility] Last Admin: 07/18/24 07:29 Dose: 3 ml Documented By: LEDY Labs 07/17/24 05:45 07/15/24 05:06 Labs: Laboratory Results - last 24 hr 07/16/24 15:35 Stl C. cayetanensis PCR Not Detected Stool Rotavirus A PCR Not Detected Stl Adenov F 40/41 PCR Not Detected Stool Astrovirus (PCR) Not Detected Stool Campylobacter PCR Not Detected Stool Cryptosporidium PCR Not Detected Stl Sh Tox Pr E STEC PCR Not Detected Stool E coli O157 PCR Not applicable Stl Enterotoxigenic E PCR Not Detected Stool EPEC (PCR) Not Detected Stool EAEC (PCR) Not Detected Stl E. histolytica PCR Not Detected Stool Giardia Lamblia PCR Not Detected Stl P. shigelloides PCR Not Detected Stool Salmonella PCR Not Detected Stool Sapovirus (PCR) Not Detected Stl Shigella/EIEC PCR Not Detected St Y.enterocolitica PCR Not Detected Stool Vibrio (PCR) Not Detected Stl Vibrio cholerae PCR Not Detected Stl Norovirus GI/GII PCR Not Detected Procedures Date of Service Date of Service: 07/18/24 Progress Note: A&P Assessment and plan (1) Acute diverticulitis: Status: Acute Assessment and Plan: Much improved Symptoms seem resolved Abdomen is soft and benign No tenderness No fever Okay to DC home on oral antibiotics She says she already talked to Dr. Barfield who is her aging box hand and has a follow up with him Time Spent With Patient Time: Total time managing care of this patient today ____ minutes. Quality Stroke Does the patient have a stroke diagnosis?: No VTE Prior VTE?: No VTE Risk Level:: Medical - moderate - high VTE Device Contraindication: Treatment Not Indicated VTE Drug Contraindication: N/A - Med Ordered
[2024-07-18] MEDS: Amoxicillin/Potassium Clav 875 MG TABLET PO (08:17)
[2024-07-18] MEDS: amLODIPine Besylate 5 MG TABLET PO (08:17)
[2024-07-18] MEDS: Gabapentin 600 MG TABLET PO (08:17)
--- NOTE | 2024-07-18 09:06 | MHC.CM.PN ---
pt dcd home has arranged own transportaion for black pickler at [address]
--- NOTE | 2024-07-18 09:24 | PM.DS ---
DS: Providers Provider Date of Service: 07/18/24 Date of admission: 07/14/24 17:57 Date of discharge: 07/18/24 Primary care physician: Thalia Servin MD Consults: 07/15/24 12:53 Consult to General Surgery Routine Consulting Provider: [facility] General Surgeons Reason for consultation: divert 07/17/24 07:16 Consult to Gastroenterology Routine Consulting Provider: Jean-Paul Barfield Reason for consultation: recurrent diverticulitis DS: Diagnosis Discharge Diagnosis (1) Acute diverticulitis: Status: Acute DS: Summary Hospital Course Hospital Course: From the history and physical by the admitting hospitalist, Roger Church DO, 07/14/24: 58-year-old female with history of COPD PTSD bipolar disorder and hypertension and a history of diverticulitis presents with abdominal pain consistent with a diverticular flare. Patient states she was recently in [facility] at the beginning of the year but was unhappy with the care. She left AMA; presents today with worsening pain that she says has not rebounded to outpatient therapies. CT demonstrated acute uncomplicated diverticulitis 58yo F with hx diverticulosis/diverticulitis admitted for recurrent acute sigmoid diverticulitis treated with bowel rest, IV fluids, and piperacillin-tazobactam. General Surgery and Gastroenterology consulted. No surgical or endoscopic intervention indicated as she improved without complications. She was discharged on amoxicillin-clavulanate twice daily for 3 days and will follow up with Gastroenterology in 2-3 months to repeat colonoscopy. Time Attestation Discharge Coordination Time (in mins): 35 Quality: Safe Use of Opioids Does Pt have an Active Cancer Diagnosis on the Problem List?: No Quality: Stroke Does the patient have a stroke diagnosis?: No Physical Exam Vital Signs: Vital Signs: Last Vital Signs Temp 97.5 F 07/18/24 08:00 Pulse 86 07/18/24 08:00 Resp 16 07/18/24 08:00 BP 130/59 L 07/18/24 08:00 Pulse Ox 91 L 07/18/24 08:00 O2 Del Method Room Air 07/18/24 08:00 BMI result Body Mass Index 32.1 Gen: in no acute distress HEENT: sclera anicteric, moist mucus membranes Neck: supple Lungs: clear to auscultation bilaterally Heart: regular rate and rhythm, no murmurs Abd: soft, mild LLQ tenderness without rebound/guarding, non-distended Ext: no edema Skin: warm/well-perfused Neuro: alert and oriented x3, no focal findings Psych: appropriate affect DS: Data Data Completed and Pending Completed studies during hospitalization [Text1]: Laboratory Results WBC 9.8 X10*3/uL (4.8-10.8) 07/17/24 05:45 RBC 3.99 X10*6/uL (4.20-5.50) L 07/17/24 05:45 Hgb 12.3 g/dl (12.0-16.0) 07/17/24 05:45 Hct 37.1 % (37.0-47.0) 07/17/24 05:45 MCV 93.0 fL (80.0-98.0) 07/17/24 05:45 MCH 30.8 pg (27.0-33.0) 07/17/24 05:45 MCHC 33.2 g/dl (31.0-35.0) 07/17/24 05:45 RDW 12.8 % (11.0-16.0) 07/17/24 05:45 Plt Count 432 X10*3/uL (160-400) H 07/17/24 05:45 MPV 9.2 fL (9.4-12.3) L 07/17/24 05:45 Immature Gran % (Auto) 0.5 % (0.0-0.4) H 07/15/24 05:06 Neut % (Auto) 67.4 % (45-73) 07/15/24 05:06 Lymph % (Auto) 20.5 % (20-40) 07/15/24 05:06 [place] % (Auto) 8.7 % (2-11) 07/15/24 05:06 Eos % (Auto) 2.4 % (0-4) 07/15/24 05:06 Baso % (Auto) 0.5 % (0-2) 07/15/24 05:06 Lymph # (Auto) 3.1 X10*3/uL (1.2-4.9) 07/15/24 05:06 [place] # (Auto) 1.3 X10*3/uL (0.1-1.2) H 07/15/24 05:06 Eos # (Auto) 0.4 X10*3/uL (0.0-0.4) 07/15/24 05:06 Baso # (Auto) 0.1 X10*3/uL (0.0-0.2) 07/15/24 05:06 Abs Immat Gran (auto) 0.08 X10*3/uL (0.00-0.03) H 07/15/24 05:06 Absolute Neuts (auto) 10.2 x10*3/uL (2.0-8.3) H 07/15/24 05:06 Absolute Nucleated RBC 0.000 X10*3/uL (0.0-0.012) 07/17/24 05:45 Nucleated RBC % (auto) 0.0 /100WBC (0.0-0.2) 07/17/24 05:45 Sodium 140 mmol/L (135-145) 07/15/24 05:06 Potassium 3.7 mmol/L (3.3-5.1) 07/15/24 05:06 Chloride 109 mmol/L (96-108) H 07/15/24 05:06 Carbon Dioxide 25 mmol/L (22-29) 07/15/24 05:06 Anion Gap 10 (12-20) L 07/15/24 05:06 BUN 7 mg/dL (9-16) L 07/15/24 05:06 Creatinine 0.68 mg/dL (0.5-1.4) 07/15/24 05:06 Estim Creat Clear Calc 92.7 07/15/24 05:06 Estimated GFR > 60 07/15/24 05:06 Random Glucose 96 mg/dL (60-115) 07/15/24 05:06 Lactic Acid 1.1 mmol/L (0.5-2.0) 07/14/24 15:37 Calcium 7.8 mg/dL (8.4-10.2) L D 07/15/24 05:06 Total Bilirubin 0.3 mg/dL (0.0-1.0) 07/15/24 05:06 AST 14 U/L (5-31) 07/15/24 05:06 ALT 11 U/L (0-31) 07/15/24 05:06 Alkaline Phosphatase 59 U/L (39-117) 07/15/24 05:06 C-Reactive Protein 6.05 mg/dL (< or = 0.50) H 07/17/24 05:45 Total Protein 6.5 g/dL (6.5-8.0) 07/15/24 05:06 Albumin 3.4 g/dL (3.5-5.0) L 07/15/24 05:06 Urine Color Yellow 07/15/24 02:32 Urine Appearance Clear 07/15/24 02:32 Urine pH 6.0 (5.0-9.0) 07/15/24 02:32 Ur Specific [place] 1.010 (1.005-1.025) 07/15/24 02:32 Urine Protein Negative mg/dL (Neg-Trace) 07/15/24 02:32 Urine Glucose (UA) Negative mg/dL (Negative) 07/15/24 02:32 Urine Ketones Negative mg/dL (Negative) 07/15/24 02: Urine Blood Negative (Negative) 07/15/24 02: Urine Nitrite Negative (Negative) 07/15/24 02:32 Ur Leukocyte Esterase Negative (Negative) 07/15/24 02:32 Stool Leukocytes, Qual NEGATIVE (NEGATIVE) 07/16/24 15:35 Stl C. cayetanensis PCR Not Detected (Not Detect.) 07/16/24 15:35 Stool Rotavirus A PCR Not Detected (Not Detect.) 07/16/24 15:35 Stl Adenov F 40/41 PCR Not Detected (Not Detect.) 07/16/24 15:35 Stool Astrovirus (PCR) Not Detected (Not Detect.) 07/16/24 15:35 Stool Campylobacter PCR Not Detected (Not Detect.) 07/16/24 15:35 Stool Cryptosporidium PCR Not Detected (Not Detect.) 07/16/24 15:35 Stl Sh Tox Pr E STEC PCR Not Detected (Not Detect.) 07/16/24 15:35 Stool E coli O157 PCR Not applicable (Not Detect.) 07/16/24 15:35 Stl Enterotoxigenic E PCR Not Detected (Not Detect.) 07/16/24 15:35 Stool EPEC (PCR) Not Detected (Not Detect.) 07/16/24 15:35 Stool EAEC (PCR) Not Detected (Not Detect.) 07/16/24 15:35 Stl E. histolytica PCR Not Detected (Not Detect.) 07/16/24 15:35 Stool Giardia Lamblia PCR Not Detected (Not Detect.) 07/16/24 15:35 Stl P. shigelloides PCR Not Detected (Not Detect.) 07/16/24 15:35 Stool Salmonella PCR Not Detected (Not Detect.) 07/16/24 15:35 Stool Sapovirus (PCR) Not Detected (Not Detect.) 07/16/24 15:35 Stl Shigella/EIEC PCR Not Detected (Not Detect.) 07/16/24 15:35 St Y.enterocolitica PCR Not Detected (Not Detect.) 07/16/24 15:35 Stool Vibrio (PCR) Not Detected (Not Detect.) 07/16/24 15:35 Stl Vibrio cholerae PCR Not Detected (Not Detect.) 07/16/24 15:35 Stl Norovirus GI/GII PCR Not Detected (Not Detect.) 07/16/24 15:35 C. difficile Tox B Gene NEGATIVE (Negative) 07/16/24 15: CT A/P with IV contrast, 07/14/24 Acute uncomplicated diverticulitis. Labs on day of discharge: Discharge Plan Discharge Anticipated Discharge Date/Time: 07/18/24 09:21 Patient Disposition: Home, Self-Care Discharge Diagnosis: diverticulitis Referrals: Jean-Paul Barfield MD [Physician] - 2 Months Thalia Servin MD [Primary Care Provider] - 1 Week Discharge Medications: New amoxicillin-pot clavulanate 875-125 mg Tablet 1 tab PO Q12H Qty: 6 0RF Continued lorazepam 1 mg Tablet 1 mg PO BID PRN (Reason: Insomnia) omeprazole 20 mg Tablet,Delayed Release (Dr/Ec) 20 mg PO DAILY@0630 gabapentin 600 mg tablet 600 mg PO TID tizanidine 2 mg tablet 2 mg PO TID PRN (Reason: Muscle Spasms) amlodipine 5 mg tablet 5 mg PO DAILY albuterol sulfate [Ventolin HFA] 90 mcg/actuation HFA aerosol inhaler 1 puff inhalation Q6H PRN (Reason: wheezing) cholecalciferol (vitamin D3) [Vitamin D3] 50 mcg (2,000 unit) tablet 50 mcg PO DAILY Discontinued amoxicillin 500 mg tablet 500 mg PO TID Discharge Orders: Discharge Order (Routine); Ordered 07/18/24 Ordered By: Purvi Stevens Diet: see below Activity on Discharge: As tolerated Stand Alone Forms: Work/School Release Print Language: Singaporean Care Plan Goals: recovery from diverticulitis Health Concerns: diverticulitis Plan of Treatment: amoxicillin-clavulanate twice daily for 3 days low residue diet and eventually transition back to a high-fiber diet follow up with Dr Barfield from [facility] in 2 months for repeat colonoscopy acetaminophen for pain Please follow up with your primary care doctor within 1 week. Return to the hospital if you experience recurrent or worsening symptoms. Assessment: See Discharge Summary.
[2024-07-18] MEDS: LORazepam 1 MG TABLET PO (09:25)
== END 2024-07-18 10:05 | disposition home or self-care (01) | DRG 244 ==
LOC: HO.ED 17:20 → HO.EDOVER 18:04 → HO.S3 20:06
PROVIDERS: Internal Medicine; Physician Assistant Medical; Admitting Provider Hospitalist; Emergency Provider Emergency Medicine; PCP Internal Medicine; Visit Provider Family Medicine
DX: K57.32 Diverticulitis of large intestine without perforation or abscess without bleeding (principal); F41.9 Anxiety disorder, unspecified; F43.10 Post-traumatic stress disorder, unspecified; J44.9 Chronic obstructive pulmonary disease, unspecified; I10 Essential (primary) hypertension; Z87.891 Personal history of nicotine dependence; Z79.899 Other long term (current) drug therapy
CPT/HCPCS: 36415; 74177; 80053; 81003; 83605; 85025; 85027; 86140; 87040; 87493; 87507; 89055; 99221; 99285; J0696; J1171; J1200; J1650; J1836; J2405; J2543; J7120; Q9967

== ENCOUNTER → 2024-07-14 15:16 | Outpatient (BNV) | payer OTHER, SELFPAY | PROVIDERS: Emergency Provider Emergency Medicine; PCP Internal Medicine; Visit Provider Radiology Diagnostic Radiology | DX: K57.92 Diverticulitis of intestine, part unspecified, without perforation or abscess without bleeding (principal) | CPT/HCPCS: 74177 ==

== ENCOUNTER → 2024-07-14 17:57 | Outpatient (BNV) | payer OTHER, SELFPAY | PROVIDERS: Admitting Provider Hospitalist; Emergency Provider Emergency Medicine; PCP Internal Medicine; Visit Provider Hospitalist | DX: K57.92 Diverticulitis of intestine, part unspecified, without perforation or abscess without bleeding (principal) | CPT/HCPCS: 99223; 99232 ==

== ENCOUNTER → 2024-07-14 17:57 | Outpatient (BNV) | payer OTHER, SELFPAY | PROVIDERS: Admitting Provider Hospitalist; Emergency Provider Emergency Medicine; PCP Internal Medicine; Visit Provider Surgery | DX: K57.92 Diverticulitis of intestine, part unspecified, without perforation or abscess without bleeding (principal) | CPT/HCPCS: 99222; 99232 ==

== ENCOUNTER 2025-02-25 10:00 | Emergency (ER) | payer OTHER, SELFPAY ==
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
--- NOTE | ~2025-02-25 | XR_ITS ---
CLINICAL HISTORY: Lt shoulder pain 3 view left shoulder Comparison: None provided Findings: No fractures or dislocations. No significant loss of joint space or osteophytes. No erosions. No radiopaque foreign body. IMPRESSION: 1. No acute findings This document has been electronically signed by: Ascencion Maloney MD on 02/25/2025 11:45:31
--- NOTE | ~2025-02-25 | XR_ITS ---
CLINICAL HISTORY: Rt elbow pain 3 view right elbow Comparison: None provided Findings: Bones intact. No dislocations. No significant arthritic change or erosions. No joint effusion. No radiopaque foreign body. IMPRESSION: 1. No acute findings. This document has been electronically signed by: Ascencion Maloney MD on 02/25/2025 11:42:34
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
[2025-02-25 10:07] VITALS: BP 173/92; PULSE 104; RESP 20; TEMP 36.7; O2SAT 98
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
[2025-02-25 10:20] VITALS: BP 173/92; BP 180/90; PULSE 104; PULSE 110; RESP 20; TEMP 36.9; O2SAT 96; O2SAT 97; BMI 30.6
[2025-02-25 10:22] LABS: Hematocrit 41.9 % (37.0-47.0); Hemoglobin 14.3 g/dl (12.0-16.0); Imm Gran Abs Auto 0.05 X10*3/uL (0.00-0.03); Imm Gran Pct Auto 0.4 % (0.0-0.4); Lymphocytes Absolute Auto 2.0 X10*3/uL (1.2-4.9); MANUAL DIFF FLAG NO; Mean Corpuscular HGB Conc 34.1 g/dl (31.0-35.0); Mean Corpuscular Hemoglobin 31.2 pg (27.0-33.0); Mean Corpuscular Volume 91.3 fL (80.0-98.0); NRBC Abs Auto 0.000 X10*3/uL (0.0-0.012); NRBC Pct Auto 0.0 /100WBC (0.0-0.2); Platelet Count 368 X10*3/uL (160-400); Red Blood Count 4.59 X10*6/uL (4.20-5.50); White Blood Count 11.5 X10*3/uL (4.8-10.8)
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
[2025-02-25 10:29] LABS: INTERNATIONAL NORM RATIO 0.9 (0.9-1.1); Prothrombin Time 10.4 SEC (10.9-12.4)
[2025-02-25 10:41] LABS: Alanine Aminotransferase 23 U/L (0-31); Albumin Level 4.8 g/dL (3.5-5.0); Alkaline Phosphatase 72 U/L (39-117); Anion Gap 19 (12-20); Aspartate Amino Transferase 21 U/L (5-31); Blood Urea Nitrogen 13 mg/dL (9-16); Calcium 9.9 mg/dL (8.4-10.2); Carbon Dioxide 21 mmol/L (22-29); Chloride 107 mmol/L (96-108); Creatinine Clr Calc Pharmacy 81.2; Estimated Glomerular Filt Rate > 60; Magnesium 2.1 mg/dL (1.6-2.6); Potassium 3.5 mmol/L (3.3-5.1); Sodium 143 mmol/L (135-145); Total Protein 7.9 g/dL (6.5-8.0)
[2025-02-25] MEDS: iohexoL 350 MG/ML 100 ML INFUS..BTL IV (10:42)
[2025-02-25 10:50] LABS: Appearance Urine Clear; Glucose Urine UA Negative (Negative); PH 5.5 (5.0-9.0); Specific Gravity - Urine 1.010 (1.005-1.025)
[2025-02-25 11:03] LABS: Cannabinoid Screen Urine Not Detected (Not Detect)
[2025-02-25] MEDS: Diphth,Pertus(ACell),Tet Adult 0.5 ML SYRINGE IM (11:33)
[2025-02-25 11:58] VITALS: BP 160/85; PULSE 91; RESP 20; TEMP -17.7; TEMP 0; O2SAT 96
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
== END 2025-02-25 12:43 | disposition home or self-care (01) ==
PROVIDERS: Physician Assistant; Emergency Provider Emergency Medicine; PCP Internal Medicine
DX: S06.0X0A Concussion without loss of consciousness, initial encounter (principal); M25.521 Pain in right elbow; R68.84 Jaw pain; M25.562 Pain in left knee; M25.561 Pain in right knee; F14.10 Cocaine abuse, uncomplicated; F15.10 Other stimulant abuse, uncomplicated; F10.10 Alcohol abuse, uncomplicated; Y90.6 Blood alcohol level of 120-199 mg/100 ml; Y04.0XXA Assault by unarmed brawl or fight, initial encounter; Y93.89 Activity, other specified; Y92.098 Other place in other non-institutional residence as the place of occurrence of the external cause; Y99.8 Other external cause status
CPT/HCPCS: 36415; 70450; 70486; 71260; 72125; 73030; 73070; 74177; 80053; 80307; 81003; 83735; 85025; 85610; 90471; 90715; 93005; 96374; 99285; J1885; Q9967

== ENCOUNTER → 2025-02-25 10:10 | Outpatient (BNV) | payer OTHER, SELFPAY | PROVIDERS: Emergency Provider Emergency Medicine; PCP Internal Medicine; Visit Provider Radiology Diagnostic Radiology | DX: M25.512 Pain in left shoulder (principal); M25.521 Pain in right elbow; R68.84 Jaw pain; R51.9 Headache, unspecified; R10.9 Unspecified abdominal pain; Y09 Assault by unspecified means | CPT/HCPCS: 70450; 70486; 71260; 72125; 73030; 73070; 74177 ==

== ENCOUNTER → 2025-02-25 10:22 | Outpatient (BNV) | payer OTHER, SELFPAY | PROVIDERS: Emergency Provider Emergency Medicine; PCP Internal Medicine; Visit Provider Internal Medicine | DX: Z13.6 Encounter for screening for cardiovascular disorders (principal) | CPT/HCPCS: 93010 ==

== ENCOUNTER 2025-03-27 08:07 | Day surgery (SDC) | payer OTHER, SELFPAY ==
--- OUTSIDE RECORDS SUMMARY | 2025-02-20 09:49 | XMS_ITS | Encounter Summary ---
Author Organization [facility] Address [address] [place] [address] Care Team Providers Care Cryogenic Transport Driver Name Role Phone Unavailable Primary Care Provider Unavailabl e Encounter Details Date Type Department Care Team (Latest Contact Info) Description 01/01/2021 Abstract [facility] CONVERSION[facility] Dental, Provider, DDS Social History Tobacco Use Types Packs/Day Years Used Date Smoking Tobacco: Never Assessed Comments Unknown Sex and Gender Information Value Date Recorded Sex Assigned at Female 05/04/2022 10:32 AM EDT Legal Sex Female 10:32 AM EDT Gender Identity Female 05/04/2022 10:32 AM EDT Sexual Orientation Straight 05/04/2022 10 :32 AM EDT documented as of this encounter Plan of Treatment Not on file documented as of this encounter Visit Diagnoses Not on filedocumented in this encounter
--- OUTSIDE RECORDS SUMMARY | 2025-02-20 09:49 | XMS_ITS ---
Author Name [facility] Organization Unknown Encounters Encounter Type Encounter Reason Primary Diagnosis Location Date Ambulatory [facility] 05/06 Care Team Organization Name Specialty Phone Email Start Date End Da te [facility] Johan Kim Primary Care 05/27/2021 02/21/2024
--- OUTSIDE RECORDS SUMMARY | 2025-02-20 09:49 | XMS_ITS | Patient Health Record ---
Author Organization [facility] Address [address] [place] [phone] Care Team Providers Care Manager Copy Name Role Phone Thalia ROSS Primary Care Provider Jean-Paul Patel Jr Unavailable DIANDRA SOLIS M.D. Unavailable Unavailable Allergies Allergen (clinical drug ingredient) Drug/Non Drug Allergy documented on EMR Reaction Allergy Type Onset Date Status morphine Morphine Unknown Drug Allergy Active Reason For Referral No Information Medications Medication SIG (Take, Route, Frequency, Duration) Notes Start Date End Date Status albuterol 1 tab Oral for 14 days Active Gabapentin 300 MG 1 capsule Orally Onc e a day for 30 day(s) Active LORazepam 1 MG 1 tablet at bedtime as needed Orally Once a day Active Omeprazole 20 MG 1 capsule 30 minutes before morning meal Orally Once a day for 30 day(s) Active Atorvastatin Calcium Not-Taking MiraLax (colon prep) 17 GM/SCOOP mixed with Gatorade or Crystal Light Orally begin at 5:00 p.m. the day before the procedure for 1 day 04/23/2021 Not-Taking Immunizations Vaccine Route Administration Date Status Comme nts Influenza Unknown 04/23/2021 Refused Social History Tobacco Use: Social History Observation Description Date Details (start date - stop date) Never Smoker NA - NA Tobacco Use/Smoking Question Answer Notes Patient is a nonsmoker AUDIT-C (Standard) Question Answer Notes Did you have a drink contain ing alcohol in the past year? Yes How often did you have a dri nk containing alcohol in the past year? Monthly or less (1 point) How many drinks did you have on a typical day when you were drinking in the past year? 1 or 2 drinks (0 point) How often did you have six o r more drinks on one occasion in the past year? Never (0 point) Points 1 Interpretation Negative Problems Problem Type SNOMED Code ICD Code Onset Dates Problem Status W/U Status Risk Notes Problem 532450602 Colon cancer screening (Z12.11) Active confirmed Problem 749630162 Diverticulitis (K57.92) Active confirmed Problem 589375212 Gastroesophageal reflux disease without esophagitis (K21.9) Active confirmed Vital Signs Heart Rate 76 /min 02/19/2025 Temperature 97.5 degrees Fahrenheit 02/19/2025 Blood pressure diastolic 01 mm Hg 02/19/2025 Height 62 in 02/19/2025 Blood pressure systolic 001 mm Hg 02/19/2025 Weight 170 lbs 02/19/2025 BMI 31.09 kg/m2 02/19/2025 Encounters Encounter Location Date Provider Diagnosis [facility] [address] [place] [phone] 02/19/2025 Jean-Paul Barfield Jr [facility] [address] [place] [phone] 07/07/2024 Jean-Paul Barfield Jr [facility] [address] [place] [phone] 08/23/2024 Jean-Paul Barfield Jr Plan Of Treatment Future Test Test Name Order Date COLONOSCOPY 04/23/2021 Next Appt Details Provider Name:Jean-Paul yeung Jr, 03/27/2025 10:10:00 AM, [address] [facility] , [place], [place], [id number], Insurance Providers Payer Name Payer Address Payer Phone Subscriber Number Group Number Insured Name Patient Relationship to Insured Coverage Start Date Coverage End Date [facility] [address] [place] [phone] [id number] ROMAINE JEREZ Self - patient is the insured 3 MEDICAID OF [place] [address] [place] [id number] ROMAINE JEREZ Self - patient is the insured Medical (General) History Medical History History ICD Code Asthma/COPD Hypertension urinary continence Elevated cholesterol Gastroesophageal reflux dise ase, EGD 03/26/16, no H. pylori or Pimentel's esophagus PTSD/bipolar TMJ syndrome Glaucoma Peripheral neuropathy Back pain Vitamin D deficiency Colonoscopy 03/07/15, normal s igmoid biopsies, tubular adenoma, five-year followup 03/24 Gestational diabetes COPD Surgical History Surgery Date(Month/Year) eye lid c section 1996 Hospitalization History Reason Date(Month/Year) Hospitalized in July for diverticulit is and pneumonia diverticulitis attack 2020
--- OUTSIDE RECORDS SUMMARY | 2025-02-20 09:49 | XMS_ITS | Encounter Summary ---
Author Organization [facility] Address [address] [address] Phone Care Team Providers Care Plastic Products Sales Representative Name Role Phone Natalie Pepe MD Primary Care Provider [phone] Alejandra Durham NP Primary Care Provider [phone] Encounter Details Date Type Department Care Team (Late st Contact Info) Description 09/12/2017 Ophth Exam [facility] Emergency Department [address] [place] [address] Nasreen Rascon MD [address] [place] [id number] [email or web address] History Tobacco Use Types Packs/Day Years Used Date Smoking Tobacco: Some Days Smokeless Tobacco: Never Alcohol Use Standard Drinks/Week Comments Yes 0 (1 standard drink = 0.6 oz pur e alcohol) rarely Comments No Sex and Gender Information Value Date Recorded Sex Assigned at Female 05/22/2021 10:11 AM EST Legal Sex Female 5:43 PM EDT Gender Identity Female 05/22/2021 10:11 AM EST Sexual Orientation Straight 05/22/2021 10 :11 AM EST documented as of this encounter Plan of Treatment Not on file documented as of this encounter Visit Diagnoses Not on filedocumented in this encounter Care Teams Plastic Products Sales Representative Relationship Specialty Start Date End Date Natalie Pepe MD PCP - General Internal Medicine 09/12/17 05/21/21 [place] [address] PCP - General 05/22/21 documented as of this encounter Additional Source Comments The information contained in this document represents components of the legal health record. It is not the complete legal health record.[facility]
[2025-03-23 12:31] VITALS: BMI 31.1
--- NOTE | 2025-03-26 08:38 | HO.ANESPROP2 ---
Documented by User: Naomi Meredith NP 03/26/25 08:39 HPI - Anesthesia Eval Consult details Narrative: 59yo F for Upper Endoscopy and Colonoscopy PMFSH Active Problems Active Problems: All Active Problems Acute diverticulitis (Acute) Past Medical History Medical History Acute diverticulitis History of diverticulitis Bipolar depression PTSD (post-traumatic stress disorder) GERD (gastroesophageal reflux disease) Elevated cholesterol Urinary incontinence HTN (hypertension) COPD (chronic obstructive pulmonary disease) Asthma Surgical History Surgical History Hx of eye surgery Hx of section Hx of colonoscopy Social History Social History Household Members: None Housing: Apartment Do you presently have visiting nurse or other home services: Yes Alcohol intake: current Alcohol intake frequency: 3 or more drinks per day Patient Tobacco Use Status: Current everyday Tobacco user e-Cigarette/Vaping Use: Former Use Use of substances other than those prescribed or required for medical reasons: No Substance Use Type: Crack/Cocaine Advance Directives: No Advance Directives Information Provided: Yes service: No Meds Allergies Allergy/AdvReac Type Severity Reaction Status Date / Time morphine Allergy Unknown Verified 02/25/25 10:24 Home Medications ?Medication ?Instructions ?Recorded ?Confirmed ?Last Taken ?Type lorazepam 1 mg tablet 1 mg PO BID PRN Insomnia 06/05/21 03/23/25 Unknown History omeprazole 20 mg tablet,delayed 20 mg PO DAILY@0630 06/05/21 03/23/25 Unknown History release albuterol sulfate 90 mcg/actuation 1 puff inhalation Q6H PRN wheezing 07/14/24 03/23/25 Unknown History aerosol inhaler (Ventolin HFA) amlodipine 5 mg tablet 5 mg PO DAILY 07/14/24 03/23/25 Unknown History cholecalciferol (vitamin D3) 50 50 mcg PO DAILY 07/14/24 03/23/25 Unknown History mcg (2,000 unit) tablet (Vitamin D3) gabapentin 600 mg tablet 600 mg PO TID 07/14/24 03/23/25 Unknown History tizanidine 2 mg tablet 2 mg PO TID PRN Muscle Spasms 07/14/24 03/23/25 Unknown History Exam Height,Weight and Vital Signs: Height 5 ft 2 in Weight 77.111 kg Assessment and Plan Assessment Anesthesia Assessment: Chart Reviewed Documented by User: Rubén Mullen MD 03/27/25 10:41 [facility] Past Medical History Medical History Acute diverticulitis History of diverticulitis Bipolar depression PTSD (post-traumatic stress disorder) GERD (gastroesophageal reflux disease) Elevated cholesterol Urinary incontinence HTN (hypertension) COPD (chronic obstructive pulmonary disease) Asthma Functional capacity: independent ambulation Family History Family history of problems with anesthesia: No Surgical History Surgical History Hx of eye surgery Hx of section Hx of colonoscopy History of Problems with Anesthesia: No Social History Social History Household Members: None Housing: Apartment Do you presently have visiting nurse or other home services: Yes Alcohol intake: current Alcohol intake frequency: 3 or more drinks per day Patient Tobacco Use Status: Current everyday Tobacco user e-Cigarette/Vaping Use: Former Use Use of substances other than those prescribed or required for medical reasons: No Substance Use Type: Crack/Cocaine Advance Directives: No Advance Directives Information Provided: Yes service: No Meds Allergies Allergy/AdvReac Type Severity Reaction Status Date / Time morphine Allergy Unknown Verified 02/25/25 10:24 Home Medications ?Medication ?Instructions ?Recorded ?Confirmed ?Last Taken ?Type lorazepam 1 mg tablet 1 mg PO BID PRN Insomnia 06/05/21 03/23/25 Unknown History omeprazole 20 mg tablet,delayed 20 mg PO DAILY@0630 06/05/21 03/23/25 Unknown History release albuterol sulfate 90 mcg/actuation 1 puff inhalation Q6H PRN wheezing 07/14/24 03/23/25 Unknown History aerosol inhaler (Ventolin HFA) amlodipine 5 mg tablet 5 mg PO DAILY 07/14/24 03/23/25 Unknown History cholecalciferol (vitamin D3) 50 50 mcg PO DAILY 07/14/24 03/23/25 Unknown History mcg (2,000 unit) tablet (Vitamin D3) gabapentin 600 mg tablet 600 mg PO TID 07/14/24 03/23/25 Unknown History tizanidine 2 mg tablet 2 mg PO TID PRN Muscle Spasms 07/14/24 03/23/25 Unknown History Exam Exam Date and Time: 03/27/25 Airway TM Dist: >3cm Neck ROM: Full Loose/Missing/Broken Teeth: Yes (chipped tooth and caps) Heart: rrr Lungs: cta Other: normal Assessment and Plan Assessment Anesthesia Assessment: Anesthesia Plan Discussed Final Anesthetic Review Family History of Problems with Anesthesia: No History of Problems with Anesthesia: No NPO: Yes ASA Class: II Final Preanesthetic Review: No Changes in Pt Med Stat, Meds/Allgs Chart Reviewed, Consent Obtained/Reviewed and Anes Risks/Benef Reviewed Patient Risk: Intermediate Procedure Risk: Low Anesthetic Plan Anesthetic Plan: MAC: Disposition: Standard PACU
[2025-03-27 08:34] VITALS: BP 143/64; PULSE 73; RESP 16; TEMP 36.4; O2SAT 95
[2025-03-27] MEDS: Lactated Ringers 1,000 ML 100 ML IVCONT (08:35)
--- NOTE | 2025-03-27 09:00 | MHC.SHP ---
Pre-Procedural Eval Section A - 24 Hr Update-Section A only Date of Service: 03/27/25 Section B - Complete if H&P > 30 days Chief Complaint: gerd,screening Details of Present Illness: see H&P no changes Relevant Family History (Specify if Yes): No Relevant Social History: None Present Medications: see Short Stay Collaborative assessment Medical History: No relevant PMH History of Previous Operations: No relevant previous surgery Allergies: Allergies Allergy/AdvReac Type Severity Reaction Status Date / Time morphine Allergy Unknown Verified 02/25/25 10:24 Review of Systems Sugical H&P ROS: Negative: Constitution, Cardiovascular, Respiratory, Neurological, Psychiatric, Hem-Onc, Allergic/Immunologic, Gastrointestinal, Genitourinary, Musculoskeletal, Integumentary, Endocrine and Eyes/Ears/Nose/Throat Exam Surgical H&P Exam: Normal: HEENT, Normal: Heart, Normal: Lungs, Normal: Extremities, Normal: Abdomen, Normal: Skin and Normal: Neurological Plan Diagnosis/Plan: Unchanged I have reviewed the history and physical and performed a pertinent physical examination on my patient. No changes have occurred unless specified. Time Spent With Patient Time: Total time managing care of this patient today ____ minutes.
--- NOTE | 2025-03-27 09:08 | PM.EVENT ---
Event Note Date of Service: 03/27/25 Time Spent With Patient Time: Total time managing care of this patient today ____ minutes.
[2025-03-27 11:05] VITALS: BP 123/67; PULSE 78; RESP 20; TEMP 36.8; O2SAT 97
[2025-03-27 11:20] VITALS: BP 154/83; PULSE 75; RESP 14; TEMP 36.6; O2SAT 97
--- NOTE | 2025-03-27 21:18 | OP_ITS ---
DATE OF SERVICE: 03/27/2025 SURGEON: Jean-Paul Barfield MD INDICATIONS: 1. Gastroesophageal reflux disease. 2. Colon cancer screening. 3. Diverticulitis. PREOPERATIVE DIAGNOSIS: POSTOPERATIVE DIAGNOSIS: PROCEDURE PERFORMED: Upper endoscopy with biopsy, colonoscopy to the terminal ileum with biopsy and snare polypectomy. ESTIMATED BLOOD LOSS: COMPLICATIONS: ANESTHESIA: Medications; monitored anesthesia care. ASSISTANTS: SPECIMENS: DESCRIPTION OF PROCEDURE: A history and physical performed. The risks and benefits of the procedure were explained to the patient. Informed consent was obtained. The patient was placed in the left lateral decubitus position. The Olympus video gastroscope was introduced into the esophagus, stomach, and duodenum. Examination was performed and the scope was removed. She was repositioned for colonoscopy. A digital rectal exam was performed and was found to be normal. The Olympus pediatric video colonoscope was introduced into the rectum and advanced to the cecum. The cecum was identified by transillumination, palpation, and identification of ileocecal valve. Examination was performed and the scope was removed. She tolerated both procedures well and was returned to recovery area in stable condition. FINDINGS: Upper endoscopy: 1. Esophagus: The esophagus was normal. There was a 5 cm hiatal hernia. 2. Stomach: Stomach showed no evidence of masses, ulcers, or polyps. Antral biopsies were obtained to evaluate for H pylori. 3. Duodenum: The bulb and 2nd portion were normal. Colonoscopy: The terminal ileum was examined and appeared normal. The visualized colonic mucosa was normal. A total of 3 polyps were identified and removed. All measured less than 10 mm. These were located in the colon at 45 cm, 20 cm, and in the rectum. The polyp at 20 cm could not be recovered. There was mild diverticulosis involving the sigmoid. Retroflexed examination showed internal hemorrhoids. IMPRESSION: 1. Gastroesophageal reflux disease. 2. Hiatal hernia. 3. Colon polyps. RECOMMENDATION: Follow up the biopsy results. MD ESTEPHANIE Phoenix/ALEX / [id number]
== END 2025-03-27 12:58 | disposition home or self-care (01) ==
PROVIDERS: PCP Internal Medicine; Visit Provider Internal Medicine Gastroenterology
PROC: (CPT 45385; principal; 2025-03-27 09:10)
DX: Z12.11 Encounter for screening for malignant neoplasm of colon (principal); Z86.0101 Personal history of adenomatous and serrated colon polyps; Z87.19 Personal history of other diseases of the digestive system; D12.5 Benign neoplasm of sigmoid colon; D12.8 Benign neoplasm of rectum; K57.30 Diverticulosis of large intestine without perforation or abscess without bleeding; K64.8 Other hemorrhoids; K21.9 Gastro-esophageal reflux disease without esophagitis; K44.9 Diaphragmatic hernia without obstruction or gangrene; I10 Essential (primary) hypertension; E78.00 Pure hypercholesterolemia, unspecified; J44.9 Chronic obstructive pulmonary disease, unspecified; F31.9 Bipolar disorder, unspecified; F43.10 Post-traumatic stress disorder, unspecified; G62.9 Polyneuropathy, unspecified; H40.9 Unspecified glaucoma; Z79.899 Other long term (current) drug therapy; E55.9 Vitamin D deficiency, unspecified; Z98.890 Other specified postprocedural states
CPT/HCPCS: 45385; 45380; 43239; 88305; 88313; 88342; J1100; J2003; J2250; J2405; J2704; J3010